=== PATIENT | male | born 1960 | race Caucasian/White ===

== ENCOUNTER 2017-10-04 22:23 | Inpatient (IN) | payer MEDICARE, MEDICAID ==
[~2017-10-04] VITALS: Ht 172.7 cm; Wt 84.8 kg
[2017-10-04 22:23] VITALS: BP 122/74
[~2017-10-04 22:23] MED LIST: Sodium Chloride 500ML 500 ML IV ONE
[2017-10-04 23:12] LABS: BASOPHILS % (AUTO) 1.2 % (0.0-2.0); EOSINOPHILS % (AUTO) 0.1 % (0.0-3.0); LYMPHOCYTES % (AUTO) 40.1 % (20.0-45.0); MEAN CORPUSCULAR HEMOGLOBIN 31.6 PG (27.0-31.0); MEAN CORPUSCULAR HGB CONC 33.4 G/DL (32.0-36.0); MEAN CORPUSCULAR VOLUME 95 FL (80-99); MEAN PLATELET VOLUME 5.9 FL (6.5-10.1); MONOCYTES % (AUTO) 9.8 % (1.0-10.0); NEUTROPHILS % (AUTO) 48.8 % (45.0-75.0); PLATELET COUNT 241 K/UL (150-450); RED BLOOD COUNT 4.91 M/UL (4.70-6.10); RED CELL DISTRIBUTION WIDTH 12.6 % (11.6-14.8); WHITE BLOOD COUNT 7.6 K/UL (4.8-10.8)
[2017-10-04 23:32] LABS: ANION GAP 5 mmol/L (5-15); CARBON DIOXIDE 29 MMOL/L (21-32); CHLORIDE 100 MMOL/L (98-107); GLOMERULAR FILTRATION RATE > 60 mL/min (>60); POTASSIUM 4.8 MMOL/L (3.5-5.1); SODIUM 134 MMOL/L (136-145)
[2017-10-04 23:45] LABS: ALANINE AMINOTRANSFERASE 23 U/L (12-78); ALBUMIN/GLOBULIN RATIO 0.9 (1.0-2.7); ASPARTATE AMINO TRANSFERASE 25 U/L (15-37); CKMB 2.9 NG/ML (0.0-3.6); LIPASE 96 U/L (73-393); TOTAL PROTEIN 7.6 G/DL (6.4-8.2)
[2017-10-04] MEDS ORDERED: Mylanta II UD 30ml ORAL PRN (23:45)
[2017-10-04] MEDS ORDERED: Morphine Sulfate 2mg/ml Inj IVP PRN (23:45)
[2017-10-04] MEDS ORDERED: Zolpidem 5mg tab ORAL PRN (23:45)
[2017-10-04] MEDS ORDERED: Miralax 17gm pkt ORAL PRN (23:45)
[2017-10-04 23:50] LABS: APPEARANCE,URINE CLEAR; KETONES,URINE NEGATIVE (NEGATIVE); LEUKOCYTE ESTERASE ,URINE NEGATIVE (NEGATIVE); NITRITE,URINE NEGATIVE (NEGATIVE); PH,URINE 6.5 (4.5-8.0); PROTEIN,URINE NEGATIVE (NEGATIVE); UROBILINOGEN,URINE NORMAL MG/DL (0.0-1.0)
[2017-10-04] MEDS ORDERED: OMEPRAZOLE20 M3 ORAL (23:55)
[2017-10-04] MEDS ORDERED: MIRTAZAPINE15 M3 ORAL (23:55)
[2017-10-04] MEDS ORDERED: SEROQUEL200 MG ORAL ×2 (23:55)
[2017-10-04] MEDS ORDERED: METOPROLOL TART50 MG ORAL (23:55)
[2017-10-04] MEDS ORDERED: DEPAKOTE250 MG PO (23:55)
[2017-10-04] MEDS ORDERED: THORAZINE25 MG PO (23:55)
[2017-10-04] MEDS ORDERED: FOLIC ACID1 MG ORAL (23:55)
[2017-10-04] MEDS ORDERED: COGENTIN1 MG ORAL (23:55)
[2017-10-04] MEDS ORDERED: RISPERDAL2 MG ORAL (23:55)
[2017-10-04] MEDS ORDERED: INVEGA SUS234 MG/1.5 IM (23:55)
[2017-10-04] MEDS ORDERED: KLONOPIN1 MG ORAL (23:55)
--- NOTE | 2017-10-05 00:20 | Emergency Room Report ---
History of Present Illness General Chief Complaint: Hypertension Source: Patient, Medical Record, EMS Present Illness HPI Patient resides at a nursing facility He was found to be acting bizarre Agitated Patient had taken his colostomy bag off and started smearing feces in the room Patient himself denies any headache denies any chest pain Is amnesic for the episode does not recall any events that were described There was no reports of vomiting or diarrhea unknown regarding fevers Allergies: Coded Allergies: No Known Allergies (Unverified , 10/04/17) Patient History Past Medical History: see triage record Pertinent Family History: none Reviewed Nursing Documentation: PMH: Agreed, PSxH: Agreed Nursing Documentation-PMH Hx Hypertension: Yes Review of Systems All Other Systems: negative except mentioned in HPI Physical Exam Vital Signs Date Time Temp Pulse Resp B/P (MAP) Pulse Ox O2 Delivery O2 Flow Rate FiO2 10/04/17 22:09 97.7 98 20 122/74 96 Room Air Sp02 EP Interpretation: reviewed, normal General Appearance: well appearing Head: normocephalic, atraumatic Eyes: bilateral eye PERRL, bilateral eye EOMI ENT: hearing grossly normal, normal pharynx, TMs + canals normal, uvula midline Neck: full range of motion, supple, no meningismus, no bony tend Respiratory: lungs clear, normal breath sounds, no rhonchi, no respiratory distress, no retraction, no accessory muscle use Cardiovascular #1: normal peripheral pulses, regular rate, rhythm, no edema, no gallop, no JVD, no murmur Gastrointestinal: normal bowel sounds, non tender, soft, no mass, no organomegaly, non-distended, no guarding, no hernia, no pulsatile mass, no rebound Genitourinary: no CVA tenderness Musculoskeletal: normal inspection Neurologic: mirror painter III-XII nml as tested, motor strength/tone normal, sensory intact, other - Patient appears somewhat confused, speech is clear otherwise follows simple commands Psychiatric: other - flat affect Skin: normal color, no rash, warm/dry, palpation normal Lymphatic: normal inspection, no adenopathy Medical Decision Making Diagnostic Impression: Primary Impression: Encephalopathy acute ER Course Multiple differentials considered Including but not limited to intracranial, metabolic infectious Patient's blood work are appropriate X-ray imaging is benign Patient has done well throughout his stay and will be admitted for further care, Labs Test 10/04/17 22:55 10/04/17 22:59 White Blood Count 7.6 K/UL (4.8-10.8) Red Blood Count 4.91 M/UL (4.70-6.10) Hemoglobin 15.5 G/DL (14.2-18.0) Hematocrit 46.4 % (42.0-52.0) Mean Corpuscular Volume 95 FL (80-99) Mean Corpuscular Hemoglobin 31.6 PG (27.0-31.0) Mean Corpuscular Hemoglobin Concent 33.4 G/DL (32.0-36.0) Red Cell Distribution Width 12.6 % (11.6-14.8) Platelet Count 241 K/UL (150-450) Mean Platelet Volume 5.9 FL (6.5-10.1) Neutrophils (%) (Auto) 48.8 % (45.0-75.0) Lymphocytes (%) (Auto) 40.1 % (20.0-45.0) Monocytes (%) (Auto) 9.8 % (1.0-10.0) Eosinophils (%) (Auto) 0.1 % (0.0-3.0) Basophils (%) (Auto) 1.2 % (0.0-2.0) Sodium Level 134 MMOL/L (136-145) Potassium Level 4.8 MMOL/L (3.5-5.1) Chloride Level 100 MMOL/L (98-107) Carbon Dioxide Level 29 MMOL/L (21-32) Anion Gap 5 mmol/L (5-15) Blood Urea Nitrogen 13 mg/dL (7-18) Creatinine 1.0 MG/DL (0.55-1.30) Estimat Glomerular Filtration Rate > 60 mL/min (>60) Glucose Level 102 MG/DL (74-106) Calcium Level 9.0 MG/DL (8.5-10.1) Total Bilirubin 0.2 MG/DL (0.2-1.0) Aspartate Amino Transf (AST/SGOT) 25 U/L (15-37) Alanine Aminotransferase (ALT/SGPT) 23 U/L (12-78) Alkaline Phosphatase 134 U/L (46-116) Total Creatine Kinase 181 U/L (26-308) Creatine Kinase MB 2.9 NG/ML (0.0-3.6) Creatine Kinase MB Relative Index 1.6 Troponin I 0.000 ng/mL (0.000-0.056) Total Protein 7.6 G/DL (6.4-8.2) Albumin 3.5 G/DL (3.4-5.0) Globulin 4.1 g/dL Albumin/Globulin Ratio 0.9 (1.0-2.7) Lipase 96 U/L (73-393) Urine Color Yellow Urine Appearance Clear Urine pH 6.5 (4.5-8.0) Urine Specific [place] 1.010 (1.005-1.035) Urine Protein Negative (NEGATIVE) Urine Glucose (UA) Negative (NEGATIVE) Urine Ketones Negative (NEGATIVE) Urine Occult Blood Negative (NEGATIVE) Urine Nitrite Negative (NEGATIVE) Urine Bilirubin Negative (NEGATIVE) Urine Urobilinogen Normal MG/DL (0.0-1.0) Urine Leukocyte Esterase Negative (NEGATIVE) Urine Opiates Screen Negative (NEGATIVE) Urine Barbiturates Screen Negative (NEGATIVE) Phencyclidine (PCP) Screen Negative (NEGATIVE) Urine Amphetamines Screen Negative (NEGATIVE) Urine Benzodiazepines Screen Negative (NEGATIVE) Urine Cocaine Screen Negative (NEGATIVE) Urine Marijuana (THC) Screen Negative (NEGATIVE) Rhythm Strip Diag. Results EP Interpretation: yes Rate: 77 Rhythm: NSR, no PVC's, no ectopy Chest X-Ray Diagnostic Results Chest X-Ray Diagnostic Results : Chest X-Ray Ordered: Yes # of Views/Limited/Complete: 1 View Indication: Chest Pain EP Interpretation: Yes Interpretation: no consolidation, no effusion, no pneumothorax Impression: No acute disease Electronically Signed by: Danii Reid DO Last Vital Signs Date Time Temp Pulse Resp B/P (MAP) Pulse Ox O2 Delivery O2 Flow Rate FiO2 10/04/17 22:23 98 20 Room Air 10/04/17 22:23 97.7 122/74 96 Status: improved Disposition: ADMITTED INPATIENT Condition: Serious Referrals: ANIBAL COLBY (PCP) DANII REID D.O. Oct 05, 2017 00:20
[2017-10-05 00:23] VITALS: BP 119/79
[2017-10-05 04:00] VITALS: BP 125/77
[2017-10-05] MEDS: LORazepam Inj 2mg/ml 1ml IV PRN ×2 (05:38→11:03)
[2017-10-05 07:51] VITALS: BP 137/71
[2017-10-05 09:51] LABS: BASOPHILS % (AUTO) 1.2 % (0.0-2.0); LYMPHOCYTES % (AUTO) 36.4 % (20.0-45.0); MEAN CORPUSCULAR HEMOGLOBIN 33.5 PG (27.0-31.0); MEAN CORPUSCULAR HGB CONC 35.7 G/DL (32.0-36.0); MEAN CORPUSCULAR VOLUME 94 FL (80-99); MEAN PLATELET VOLUME 5.9 FL (6.5-10.1); MONOCYTES % (AUTO) 4.7 % (1.0-10.0); NEUTROPHILS % (AUTO) 57.7 % (45.0-75.0); PLATELET COUNT 276 K/UL (150-450); RED BLOOD COUNT 4.84 M/UL (4.70-6.10); RED CELL DISTRIBUTION WIDTH 12.5 % (11.6-14.8); WHITE BLOOD COUNT 7.7 K/UL (4.8-10.8)
[2017-10-05 10:15] LABS: ALANINE AMINOTRANSFERASE 19 U/L (12-78); ALBUMIN/GLOBULIN RATIO 0.9 (1.0-2.7); ANION GAP 7 mmol/L (5-15); ASPARTATE AMINO TRANSFERASE 14 U/L (15-37); CALCIUM 8.6 MG/DL (8.5-10.1); CARBON DIOXIDE 26 MMOL/L (21-32); CHLORIDE 101 MMOL/L (98-107); CHOLESTEROL 146 MG/DL (< 200); CHOLESTEROL/HDL RATIO 3.4 (3.3-4.4); GLOMERULAR FILTRATION RATE > 60 mL/min (>60); POTASSIUM 4.4 MMOL/L (3.5-5.1); SODIUM 134 MMOL/L (136-145); THYROID STIMULATING HORMONE 1.767 uiU/mL (0.358-3.740); TOTAL PROTEIN 7.8 G/DL (6.4-8.2)
[2017-10-05 11:46] VITALS: BP 128/73
--- NOTE | 2017-10-05 13:22 | Neurology Progress Note ---
Objective Physical Exam Last Vital Signs Date Time Temp Pulse Resp B/P (MAP) Pulse Ox O2 Delivery O2 Flow Rate FiO2 10/05/17 11:46 98.2 90 18 128/73 97 Room Air Laboratory Tests Test 10/04/17 22:55 10/04/17 22:59 10/05/17 08:50 White Blood Count 7.6 K/UL (4.8-10.8) 7.7 K/UL (4.8-10.8) Red Blood Count 4.91 M/UL (4.70-6.10) 4.84 M/UL (4.70-6.10) Hemoglobin 15.5 G/DL (14.2-18.0) 16.2 G/DL (14.2-18.0) Hematocrit 46.4 % (42.0-52.0) 45.5 % (42.0-52.0) Mean Corpuscular Volume 95 FL (80-99) 94 FL (80-99) Mean Corpuscular Hemoglobin 31.6 PG (27.0-31.0) H 33.5 PG (27.0-31.0) H Mean Corpuscular Hemoglobin Concent 33.4 G/DL (32.0-36.0) 35.7 G/DL (32.0-36.0) Red Cell Distribution Width 12.6 % (11.6-14.8) 12.5 % (11.6-14.8) Platelet Count 241 K/UL (150-450) 276 K/UL (150-450) Mean Platelet Volume 5.9 FL (6.5-10.1) L 5.9 FL (6.5-10.1) L Neutrophils (%) (Auto) 48.8 % (45.0-75.0) 57.7 % (45.0-75.0) Lymphocytes (%) (Auto) 40.1 % (20.0-45.0) 36.4 % (20.0-45.0) Monocytes (%) (Auto) 9.8 % (1.0-10.0) 4.7 % (1.0-10.0) Eosinophils (%) (Auto) 0.1 % (0.0-3.0) 0.0 % (0.0-3.0) Basophils (%) (Auto) 1.2 % (0.0-2.0) 1.2 % (0.0-2.0) Sodium Level 134 MMOL/L (136-145) L 134 MMOL/L (136-145) L Potassium Level 4.8 MMOL/L (3.5-5.1) 4.4 MMOL/L (3.5-5.1) Chloride Level 100 MMOL/L (98-107) 101 MMOL/L (98-107) Carbon Dioxide Level 29 MMOL/L (21-32) 26 MMOL/L (21-32) Anion Gap 5 mmol/L (5-15) 7 mmol/L (5-15) Blood Urea Nitrogen 13 mg/dL (7-18) 11 mg/dL (7-18) Creatinine 1.0 MG/DL (0.55-1.30) 1.0 MG/DL (0.55-1.30) Estimat Glomerular Filtration Rate > 60 mL/min (>60) > 60 mL/min (>60) Glucose Level 102 MG/DL (74-106) 125 MG/DL (74-106) H Calcium Level 9.0 MG/DL (8.5-10.1) 8.6 MG/DL (8.5-10.1) Total Bilirubin 0.2 MG/DL (0.2-1.0) 0.1 MG/DL (0.2-1.0) L Aspartate Amino Transf (AST/SGOT) 25 U/L (15-37) 14 U/L (15-37) L Alanine Aminotransferase (ALT/SGPT) 23 U/L (12-78) 19 U/L (12-78) Alkaline Phosphatase 134 U/L (46-116) H 149 U/L (46-116) H Total Creatine Kinase 181 U/L (26-308) Creatine Kinase MB 2.9 NG/ML (0.0-3.6) Creatine Kinase MB Relative Index 1.6 Troponin I 0.000 ng/mL (0.000-0.056) Total Protein 7.6 G/DL (6.4-8.2) 7.8 G/DL (6.4-8.2) Albumin 3.5 G/DL (3.4-5.0) 3.6 G/DL (3.4-5.0) Globulin 4.1 g/dL 4.2 g/dL Albumin/Globulin Ratio 0.9 (1.0-2.7) L 0.9 (1.0-2.7) L Lipase 96 U/L (73-393) Urine Color Yellow Urine Appearance Clear Urine pH 6.5 (4.5-8.0) Urine Specific [place] 1.010 (1.005-1.035) Urine Protein Negative (NEGATIVE) Urine Glucose (UA) Negative (NEGATIVE) Urine Ketones Negative (NEGATIVE) Urine Occult Blood Negative (NEGATIVE) Urine Nitrite Negative (NEGATIVE) Urine Bilirubin Negative (NEGATIVE) Urine Urobilinogen Normal MG/DL (0.0-1.0) Urine Leukocyte Esterase Negative (NEGATIVE) Urine Opiates Screen Negative (NEGATIVE) Urine Barbiturates Screen Negative (NEGATIVE) Phencyclidine (PCP) Screen Negative (NEGATIVE) Urine Amphetamines Screen Negative (NEGATIVE) Urine Benzodiazepines Screen Negative (NEGATIVE) Urine Cocaine Screen Negative (NEGATIVE) Urine Marijuana (THC) Screen Negative (NEGATIVE) Triglycerides Level 249 MG/DL (30-150) H Cholesterol Level 146 MG/DL (< 200) LDL Cholesterol 83 mg/dL (<100) HDL Cholesterol 43 MG/DL (40-60) Cholesterol/HDL Ratio 3.4 (3.3-4.4) Thyroid Stimulating Hormone (TSH) 1.767 uiU/mL (0.358-3.740) Impression/Recommendations Recommendations #[id number] PETER COLBERT Oct 05, 2017 13:22
[2017-10-05] MEDS ORDERED: chlorproMAZINE 25mg tab ORAL ONE (15:00)
--- NOTE | 2017-10-05 15:55 | Consultation ---
History of Present Illness General Date patient seen: Oct 05, 2017 Chief Complaint: Hypertension Present Illness HPI 56 year old male with hx of colostomy, schizophrenia residing at a nursing facility He was found to be acting bizarre and Agitated. He had taken his colostomy bag off and started smearing feces in the room Pt is admitted for acute encephalopathy. Allergies: Coded Allergies: No Known Allergies (Unverified , 10/04/17) Medication History Scheduled Benztropine Mesylate (Cogentin 1mg*), 1 MG ORAL EVERY 12 HOURS, (Reported) Chlorpromazine (Chlorpromazine HCl), 50 MG PO TID, (Reported) Clonazepam* (Klonopin*), 1 MG ORAL BID, (Reported) Divalproex Sodium* (Depakote*), 1,000 MG PO QHS, (Reported) Folic Acid* (Folic Acid*), 1 MG ORAL DAILY, (Reported) Metoprolol Tartrate* (Metoprolol Tartrate*), 50 MG ORAL EVERY 12 HOURS, ( Reported) Mirtazapine* (Mirtazapine*), 15 MG ORAL QHS, (Reported) Omeprazole (Omeprazole), 20 MG ORAL ACBREAKFAST, (Reported) Paliperidone Palmitate (Invega Sustenna), 234 MG IM monthly, (Reported) Quetiapine Fumarate* (Seroquel*), 200 MG ORAL TWICE A DAY, (Reported) Quetiapine Fumarate* (Seroquel*), 300 MG ORAL QHS, (Reported) Risperidone* (Risperdal*), 4 MG ORAL BID, (Reported) Patient History Healthcare decision maker Resuscitation status Full Code Advanced Directive on File Past Medical/Surgical History Past Medical/Surgical History: (1) Colostomy in place (2) HTN (hypertension) Review of Systems All Other Systems: negative except mentioned in HPI Physical Exam General Appearance: WD/WN Lines, tubes and drains: peripheral, central line HEENT: normocephalic, atraumatic Neck: non-tender, normal alignment Respiratory/Chest: chest wall non-tender, lungs clear Breasts: no masses Cardiovascular/Chest: normal peripheral pulses, normal rate Abdomen: normal bowel sounds, non tender Genitourinary/Rectal: normal genital exam Extremities: normal range of motion Last 24 Hour Vital Signs Date Time Temp Pulse Resp B/P (MAP) Pulse Ox O2 Delivery O2 Flow Rate FiO2 10/05/17 11:46 98.2 90 18 128/73 97 Room Air 10/05/17 07:51 97.2 99 19 137/71 96 Room Air 10/05/17 04:00 98.1 77 20 125/77 94 10/05/17 04:00 Room Air 10/05/17 00:40 97.7 95 18 135/78 96 Room Air 10/05/17 00:23 98.0 95 17 119/79 96 Room Air 10/04/17 22:23 98 20 Room Air 10/04/17 22:23 97.7 98 20 122/74 96 Room Air 10/04/17 22:09 97.7 98 20 122/74 96 Room Air Intake and Output 10/05/17 10/06/17 19:00 07:00 Intake Total 480 ml Balance 480 ml Intake Oral 480 ml Laboratory Tests Test 10/04/17 22:55 10/04/17 22:59 10/05/17 08:50 White Blood Count 7.6 K/UL (4.8-10.8) 7.7 K/UL (4.8-10.8) Red Blood Count 4.91 M/UL (4.70-6.10) 4.84 M/UL (4.70-6.10) Hemoglobin 15.5 G/DL (14.2-18.0) 16.2 G/DL (14.2-18.0) Hematocrit 46.4 % (42.0-52.0) 45.5 % (42.0-52.0) Mean Corpuscular Volume 95 FL (80-99) 94 FL (80-99) Mean Corpuscular Hemoglobin 31.6 PG (27.0-31.0) H 33.5 PG (27.0-31.0) H Mean Corpuscular Hemoglobin Concent 33.4 G/DL (32.0-36.0) 35.7 G/DL (32.0-36.0) Red Cell Distribution Width 12.6 % (11.6-14.8) 12.5 % (11.6-14.8) Platelet Count 241 K/UL (150-450) 276 K/UL (150-450) Mean Platelet Volume 5.9 FL (6.5-10.1) L 5.9 FL (6.5-10.1) L Neutrophils (%) (Auto) 48.8 % (45.0-75.0) 57.7 % (45.0-75.0) Lymphocytes (%) (Auto) 40.1 % (20.0-45.0) 36.4 % (20.0-45.0) Monocytes (%) (Auto) 9.8 % (1.0-10.0) 4.7 % (1.0-10.0) Eosinophils (%) (Auto) 0.1 % (0.0-3.0) 0.0 % (0.0-3.0) Basophils (%) (Auto) 1.2 % (0.0-2.0) 1.2 % (0.0-2.0) Sodium Level 134 MMOL/L (136-145) L 134 MMOL/L (136-145) L Potassium Level 4.8 MMOL/L (3.5-5.1) 4.4 MMOL/L (3.5-5.1) Chloride Level 100 MMOL/L (98-107) 101 MMOL/L (98-107) Carbon Dioxide Level 29 MMOL/L (21-32) 26 MMOL/L (21-32) Anion Gap 5 mmol/L (5-15) 7 mmol/L (5-15) Blood Urea Nitrogen 13 mg/dL (7-18) 11 mg/dL (7-18) Creatinine 1.0 MG/DL (0.55-1.30) 1.0 MG/DL (0.55-1.30) Estimat Glomerular Filtration Rate > 60 mL/min (>60) > 60 mL/min (>60) Glucose Level 102 MG/DL (74-106) 125 MG/DL (74-106) H Calcium Level 9.0 MG/DL (8.5-10.1) 8.6 MG/DL (8.5-10.1) Total Bilirubin 0.2 MG/DL (0.2-1.0) 0.1 MG/DL (0.2-1.0) L Aspartate Amino Transf (AST/SGOT) 25 U/L (15-37) 14 U/L (15-37) L Alanine Aminotransferase (ALT/SGPT) 23 U/L (12-78) 19 U/L (12-78) Alkaline Phosphatase 134 U/L (46-116) H 149 U/L (46-116) H Total Creatine Kinase 181 U/L (26-308) Creatine Kinase MB 2.9 NG/ML (0.0-3.6) Creatine Kinase MB Relative Index 1.6 Troponin I 0.000 ng/mL (0.000-0.056) Total Protein 7.6 G/DL (6.4-8.2) 7.8 G/DL (6.4-8.2) Albumin 3.5 G/DL (3.4-5.0) 3.6 G/DL (3.4-5.0) Globulin 4.1 g/dL 4.2 g/dL Albumin/Globulin Ratio 0.9 (1.0-2.7) L 0.9 (1.0-2.7) L Lipase 96 U/L (73-393) Urine Color Yellow Urine Appearance Clear Urine pH 6.5 (4.5-8.0) Urine Specific [place] 1.010 (1.005-1.035) Urine Protein Negative (NEGATIVE) Urine Glucose (UA) Negative (NEGATIVE) Urine Ketones Negative (NEGATIVE) Urine Occult Blood Negative (NEGATIVE) Urine Nitrite Negative (NEGATIVE) Urine Bilirubin Negative (NEGATIVE) Urine Urobilinogen Normal MG/DL (0.0-1.0) Urine Leukocyte Esterase Negative (NEGATIVE) Urine Opiates Screen Negative (NEGATIVE) Urine Barbiturates Screen Negative (NEGATIVE) Phencyclidine (PCP) Screen Negative (NEGATIVE) Urine Amphetamines Screen Negative (NEGATIVE) Urine Benzodiazepines Screen Negative (NEGATIVE) Urine Cocaine Screen Negative (NEGATIVE) Urine Marijuana (THC) Screen Negative (NEGATIVE) Triglycerides Level 249 MG/DL (30-150) H Cholesterol Level 146 MG/DL (< 200) LDL Cholesterol 83 mg/dL (<100) HDL Cholesterol 43 MG/DL (40-60) Cholesterol/HDL Ratio 3.4 (3.3-4.4) Thyroid Stimulating Hormone (TSH) 1.767 uiU/mL (0.358-3.740) Valproic Acid (Depakene) Level 48 MCG/ML (50-100) L Height (Feet): 5 Height (Inches): 8.00 Weight (Pounds): 187 Medications Current Medications Medications (Trade) Dose Ordered Sig/Lyssa Route PRN Reason Start Time Stop Time Status Last Admin Dose Admin Acetaminophen (Tylenol) 650 mg Q4H PRN ORAL fever 10/04/17 23:45 11/03/17 23:44 Al Hydroxide/Mg Hydroxide (Mylanta II) 30 ml Q6H PRN ORAL dyspepsia 10/04/17 23:45 11/03/17 23:44 Chlorpromazine (Thorazine) 25 mg TID ORAL 10/05/17 18:00 11/04/17 17:59 Dextrose (Dextrose 50%) STAT PRN IV Hypoglycemia 10/04/17 23:45 11/03/17 23:44 Diphenhydramine HCl (Benadryl) 50 mg TID ORAL 10/05/17 18:00 11/04/17 17:59 Divalproex Sodium (Depakote ER) 1,000 mg QHS ORAL 10/05/17 21:00 11/04/17 20:59 Lorazepam (Ativan 2mg/ml 1ml) 1 mg Q4H PRN IV For Anxiety 10/05/17 15:45 10/12/17 15:44 Morphine Sulfate (Morphine Sulfate) 1 mg Q4H PRN IVP For Pain 10/04/17 23:45 10/11/17 23:44 Ondansetron HCl (Zofran) 4 mg Q6H PRN IVP Nausea & Vomiting 10/04/17 23:45 11/03/17 23:44 Polyethylene Glycol (Miralax) 17 gm HSPRN PRN ORAL Constipation 10/04/17 23:45 11/03/17 23:44 Quetiapine Fumarate (SEROquel) 200 mg BID ORAL 10/05/17 18:00 11/04/17 17:59 Zolpidem Tartrate (Ambien) 5 mg HSPRN PRN ORAL Insomnia 10/04/17 23:45 10/11/17 23:44 Assessment/Plan Problem List: (1) Encephalopathy acute ICD Codes: G93.40 - Encephalopathy, unspecified SNOMED: 5184698 (2) Hypertension ICD Codes: I10 - Essential (primary) hypertension SNOMED: 73866753 (3) Colostomy in place ICD Codes: Z93.3 - Colostomy status SNOMED: 598758552, 259307397 Assessment/Plan Neuro and psych evaluation. check electrolytes. colostomy care ETHEL SOTO Oct 05, 2017 15:55
[2017-10-05 15:59] VITALS: BP 136/75
--- NOTE | 2017-10-05 17:02 | History and Physical Report ---
DATE OF ADMISSION: 10/04/2017 TIME SEEN: On 10/05/2017, approximate time is 1 p.m. ATTENDING PHYSICIAN: Marty Hawthorne D.O. CONSULTANTS: 1. Miguel Angel Sahni M.D. 2. Akin Zamora M.D. 3. Alex Batista M.D. CHIEF COMPLAINT: Increased confusion and agitation. BRIEF HISTORY: The patient is a 56-year-old male from [facility] who presented with the above-mentioned diagnoses, diagnosed with above, admitted to [facility] floor for further treatment. He is currently calm and slightly confused in bed. No complaint, otherwise. PAST MEDICAL HISTORY: Encephalopathy and chronic pain. PAST SURGICAL HISTORY: Exploratory laparotomy and colostomy. MEDICATIONS: Tylenol, morphine, MiraLAX, Zofran, Ambien, Ativan and Mylanta. ALLERGIES: Denies. SOCIAL HISTORY: Positive smoke. Positive alcohol. No intravenous drug abuse. FAMILY HISTORY: Noncontributory. REVIEW OF SYSTEMS: No chest pain. No shortness of breath. No nausea, vomiting, or diarrhea. PHYSICAL EXAMINATION: GENERAL: Slightly agitated, in bed, oriented x1, in no acute distress. VITAL SIGNS: Temperature is 98, pulse 90, respirations 18, and blood pressure 128/73. CARDIOVASCULAR: No murmur. LUNGS: Poor exchange. ABDOMEN: Bowel sounds positive. Midline wound is clean and dry. Right side colostomy noted. EXTREMITIES: Showed no cyanosis, clubbing, or edema. NEUROLOGIC: The patient moves all extremities, slightly weak. LABORATORY DATA: Labs at this time show CBC is normal. BMP shows sodium 134, glucose 129, otherwise normal. Urine tox is negative. Urinalysis is negative. ASSESSMENT: 1. Encephalopathy. 2. Agitation. 3. Chronic pain. 4. Hypertension. PLAN: 1. Continue premedications. 2. Psych treatment. 3. Blood pressure control. 4. Dietary followup. 5. Transfer to Psych. 6. We will continue to follow this patient medically. 7. CBC and BMP in the morning. 8. OT, PT and dietary evaluation. Marty Hawthorne D.O. DR: WENDY JOB#: [id number] CC:
[2017-10-05] MEDS: QUEtiapine 200mg tab ORAL SCH (18:15)
[2017-10-05] MEDS: chlorproMAZINE 25mg tab ORAL SCH (18:46)
[2017-10-05 21:00] VITALS: BP 140/71
[2017-10-05] MEDS: Depakote ER 500mg tab ORAL SCH (21:00)
--- NOTE | 2017-10-05 21:01 | Consultation ---
DATE OF CONSULTATION: 10/05/2017 NEUROLOGICAL CONSULTATION CONSULTING PHYSICIAN: Alex Batista M.D. REQUESTING PHYSICIAN: Marty Hawthorne D.O. HISTORY OF PRESENT ILLNESS: This is a 56-year-old man seen in neurological consultation to evaluate the episodes of "acting bizarre and being agitated." Apparently, the patient took his colostomy bag off and started smearing feces in the room. When asked later, the patient was unable to recall of any such events. With this, he was brought to emergency room. His vital signs were stable. Blood pressure 142/74 and temperature 97.7. Initial workup included laboratory studies revealing normal CBC study, chemistry panel unremarkable except sodium of 134, triglycerides 249, normal TSH and CPK. Urinalysis was normal and toxicology panel was negative. Since admission until present, there was no evidence of paroxysmal activity. PAST MEDICAL HISTORY: This was obtained from medical records. The patient has no recollection of any medical issues. He was unable to explain the reason for his colostomy use. Apparently, the patient has history of hypertension, chronic psychiatric disorder, history of laparotomy with a colostomy bag in place. The patient as part of some injury to his abdomen. MEDICATIONS: His treatment prior to admission included Cogentin, chlorpromazine 25 mg t.i.d., Klonopin 1 mg b.i.d., Depakote 1000 mg at bedtime, folate, metoprolol 50 mg b.i.d., Remeron 15 mg at bedtime, omeprazole, Invega , Seroquel 200 b.i.d. and 300 at bedtime, and Risperdal 4 mg b.i.d. ALLERGIES: None reported. SOCIAL HISTORY: Resident of nursing facility. FAMILY HISTORY: Unavailable. REVIEW OF SYMPTOMS: Unable to obtain due to the patient's status. He informed me that he was still perfectly well and he would like to go to "my place." PHYSICAL EXAMINATION: GENERAL: A well-developed, well-nourished, healthy-appearing man, not in acute distress. VITAL SIGNS: Stable. Blood pressure 128/73, temperature 98.2. HEENT: Head normocephalic. There is no evidence of trauma. No otorrhea. No rhinorrhea. NECK: Supple. No meningeal signs. MUSCULOSKELETAL: Examination unremarkable. There are no deformities. ABDOMEN: There is a large laparotomy scarring with a colostomy bag in place. EXTREMITIES: Peripheral pulses 1+, symmetric. SKIN: Unremarkable. No rash. No evidence of trauma. MENTAL STATUS: The patient is alert. He indicates his age is 67. He was unable to give the name, place, time, year. He was unable to provide with medical history. He appears to be significantly agitated with angry look, but was able to follow simple commands, responding to joke. He was asking if he can go back to his place. CRANIAL NERVE II: Pupils both responding to light and accommodation. Extraocular movements intact. No nystagmus. CRANIAL NERVES V: Normal corneal responses. CRANIAL NERVES VII: No facial asymmetry. CRANIAL NERVES VIII: Normal hearing. CRANIAL NERVES IX THROUGH XII: Tongue is in midline. Symmetric palate elevation. MOTOR: Normal muscle tone. Strength 5/5 in all extremities. No involuntary movement. Deep tendon reflexes 1+, bilaterally symmetric. Plantar responses flexor. SENSORY: Normal to pin stimulation. GAIT: Stable including tandem gait. IMPRESSION: 1. Mental retardation, presenting with acute psychotic behavior. 2. Rule out seizure disorder with amnestic episode. 3. Hypertension. 4. Chronic psychiatric disorder. RECOMMENDATION: Check baseline CT of the brain and get EEG to rule out any ongoing seizure activities. Obtain Depakote level and adjust the dose appropriately, have psychiatry assessment to adjust antipsychotic treatment. Thank you for allowing me to see this interesting patient in neurological consultation Alex Batista M.D. DR: Paul JOB#: [id number] CC:
[2017-10-06 04:00] VITALS: BP 132/78
[2017-10-06 06:42] LABS: ANION GAP 6 mmol/L (5-15); CALCIUM 8.9 MG/DL (8.5-10.1); CARBON DIOXIDE 29 MMOL/L (21-32); CHLORIDE 99 MMOL/L (98-107); GLOMERULAR FILTRATION RATE > 60 mL/min (>60); POTASSIUM 4.7 MMOL/L (3.5-5.1); SODIUM 134 MMOL/L (136-145)
[2017-10-06 07:04] LABS: BASOPHILS % (AUTO) 1.4 % (0.0-2.0); LYMPHOCYTES % (AUTO) 34.6 % (20.0-45.0); MEAN CORPUSCULAR HEMOGLOBIN 30.6 PG (27.0-31.0); MEAN CORPUSCULAR HGB CONC 32.3 G/DL (32.0-36.0); MEAN CORPUSCULAR VOLUME 95 FL (80-99); MEAN PLATELET VOLUME 5.4 FL (6.5-10.1); MONOCYTES % (AUTO) 7.8 % (1.0-10.0); NEUTROPHILS % (AUTO) 56.2 % (45.0-75.0); PLATELET COUNT 273 K/UL (150-450); RED BLOOD COUNT 4.97 M/UL (4.70-6.10); RED CELL DISTRIBUTION WIDTH 12.7 % (11.6-14.8); WHITE BLOOD COUNT 8.5 K/UL (4.8-10.8)
[2017-10-06] MEDS: LORazepam Inj 2mg/ml 1ml IV PRN ×3 (07:50→23:25)
--- NOTE | 2017-10-06 08:31 | Consultation ---
DATE OF CONSULTATION: 10/05/2017 NOTE: POOR AUDIO QUALITY HISTORY OF PRESENT ILLNESS: This is a 56-year-old male patient who was admitted to [facility] secondary to hypertension, but he had lot of mood lability, agitation, confusion as well as lability secondary to progression of medical illness. He is very irritable and agitated. He has overlying diagnosis of schizoaffective, bipolar type, that is why his primary attending has requested daily psychiatric followup. This patient is still confused, irritable, agitated, verbally assaultive towards staff, disorganized, mood labile. ALLERGIES: He has no known drug allergies. SUBSTANCE ABUSE HISTORY: Refused to answer questions. PSYCHIATRIC HISTORY: Schizoaffective, bipolar type. He has had multiple psychiatric admissions. SOCIAL HISTORY: This patient is financially supported by [employer] and Medicare. MEDICAL HISTORY: He has history of hypertension, neuropathy, . MENTAL STATUS EXAMINATION: This is a 56-year-old male with psychomotor retardation. Mood is depressed. Affect guarded and restricted. Thought process is disorganized and illogical. Endorses intermittent suicidal ideations with no plan. Insight and judgment is poor. DIAGNOSIS: Schizoaffective, bipolar type. PLAN: My plan is to treat this patient with Depakote 1000 mg at bedtime to stabilize his mood and Thorazine 25 mg three times a day with Benadryl 50 mg three times a day, and Seroquel 200 mg twice a day. Provide behavioral management and supportive therapy. Encouraged him to interact appropriately with staff and other patients. We will transfer him once he is medically cleared. Chart is reviewed and discussed with staff. The patient is seen and assessed at bedside. I would like to thank Dr. Mraty Hawthorne for this interesting consultation. Akin Zamora M.D. DR: Lamberto JOB#: [id number] CC:
[2017-10-06] MEDS: QUEtiapine 200mg tab ORAL SCH ×2 (09:46→17:46)
[2017-10-06] MEDS: chlorproMAZINE 25mg tab ORAL SCH ×3 (09:46→17:47)
[2017-10-06 12:03] VITALS: BP 122/63
--- NOTE | 2017-10-06 14:03 | General Progress Note ---
Assessment/Plan Problem List: (1) Hypertension ICD Codes: I10 - Essential (primary) hypertension SNOMED: 34741844 (2) Encephalopathy acute ICD Codes: G93.40 - Encephalopathy, unspecified SNOMED: 6308102 (3) Colostomy in place ICD Codes: Z93.3 - Colostomy status SNOMED: 006070933, 179793558 Status: stable, progressing, tolerating diet Assessment/Plan ot pt diet psyc tx transfer to [facility] bmp am Subjective Constitutional: Reports: weakness Allergies: Coded Allergies: No Known Allergies (Unverified , 10/04/17) All Systems: reviewed and negative except above Subjective sl confused in bed Objective Last 24 Hour Vital Signs Date Time Temp Pulse Resp B/P (MAP) Pulse Ox O2 Delivery O2 Flow Rate FiO2 10/06/17 12:03 97.7 105 22 122/63 100 Room Air 10/06/17 04:00 98.1 92 18 132/78 91 10/06/17 04:00 Room Air 10/06/17 00:09 Room Air 10/05/17 21:00 Room Air 10/05/17 21:00 99.3 89 21 140/71 95 10/05/17 15:59 98.0 84 22 136/75 97 Room Air Laboratory Tests 10/06/17 06:10: White Blood Count 8.5, Red Blood Count 4.97, Hemoglobin 15.2, Hematocrit 47.1, Mean Corpuscular Volume 95, Mean Corpuscular Hemoglobin 30.6, Mean Corpuscular Hemoglobin Concent 32.3, Red Cell Distribution Width 12.7, Platelet Count 273, Mean Platelet Volume 5.4L, Neutrophils (%) (Auto) 56.2, Lymphocytes (%) (Auto) 34.6, Monocytes (%) (Auto) 7.8, Eosinophils (%) (Auto) 0.0, Basophils (%) (Auto ) 1.4, Sodium Level 134L, Potassium Level 4.7, Chloride Level 99, Carbon Dioxide Level 29, Anion Gap 6, Blood Urea Nitrogen 10, Creatinine 1.0, Estimat Glomerular Filtration Rate > 60, Glucose Level 98, Calcium Level 8.9 Height (Feet): 5 Height (Inches): 8.00 Weight (Pounds): 187 General Appearance: confused EENT: normal ENT inspection Neck: normal alignment Cardiovascular: normal peripheral pulses, normal rate, regular rhythm Respiratory/Chest: chest wall non-tender, lungs clear, normal breath sounds Abdomen: normal bowel sounds, non tender, soft Extremities: normal inspection Edema: no edema noted Arm (L), no edema noted Arm (R), no edema noted Leg (L), no edema noted Leg (R), no edema noted Pedal (L), no edema noted Pedal (R), no edema noted Generalized Neurologic: motor weakness Skin: normal pigmentation, warm/dry ANIBAL COLBY Oct 06, 2017 14:03
--- NOTE | 2017-10-06 15:45 | Pulmonology Progress Note ---
Assessment/Plan Problems: (1) Encephalopathy acute (2) Hypertension (3) Colostomy in place Assessment/Plan all noted symptomatic treatment all notes reviewed check electrolytes dc planning soon Subjective ROS Limited/Unobtainable: No Constitutional: Reports: no symptoms HEENT: Repors: no symptoms Respiratory: Reports: no symptoms Allergies: Coded Allergies: No Known Allergies (Unverified , 10/04/17) Objective Last 24 Hour Vital Signs Date Time Temp Pulse Resp B/P (MAP) Pulse Ox O2 Delivery O2 Flow Rate FiO2 10/06/17 12:03 97.7 105 22 122/63 100 Room Air 10/06/17 04:00 98.1 92 18 132/78 91 10/06/17 04:00 Room Air 10/06/17 00:09 Room Air 10/05/17 21:00 Room Air 10/05/17 21:00 99.3 89 21 140/71 95 10/05/17 15:59 98.0 84 22 136/75 97 Room Air Intake and Output 10/06/17 10/07/17 19:00 07:00 Intake Total 480 ml Balance 480 ml Intake Oral 480 ml General Appearance: WD/WN HEENT: normocephalic, atraumatic Respiratory/Chest: chest wall non-tender, lungs clear Abdomen: non distended Genitourinary: normal external genitalia Extremities: no clubbing Skin: no rash, no lesions Laboratory Tests 10/06/17 06:10: White Blood Count 8.5, Red Blood Count 4.97, Hemoglobin 15.2, Hematocrit 47.1, Mean Corpuscular Volume 95, Mean Corpuscular Hemoglobin 30.6, Mean Corpuscular Hemoglobin Concent 32.3, Red Cell Distribution Width 12.7, Platelet Count 273, Mean Platelet Volume 5.4L, Neutrophils (%) (Auto) 56.2, Lymphocytes (%) (Auto) 34.6, Monocytes (%) (Auto) 7.8, Eosinophils (%) (Auto) 0.0, Basophils (%) (Auto ) 1.4, Sodium Level 134L, Potassium Level 4.7, Chloride Level 99, Carbon Dioxide Level 29, Anion Gap 6, Blood Urea Nitrogen 10, Creatinine 1.0, Estimat Glomerular Filtration Rate > 60, Glucose Level 98, Calcium Level 8.9 Current Medications Medications (Trade) Dose Ordered Sig/Lyssa Route PRN Reason Start Time Stop Time Status Last Admin Dose Admin Acetaminophen (Tylenol) 650 mg Q4H PRN ORAL fever 10/04/17 23:45 11/03/17 23:44 Al Hydroxide/Mg Hydroxide (Mylanta II) 30 ml Q6H PRN ORAL dyspepsia 10/04/17 23:45 11/03/17 23:44 Chlorpromazine (Thorazine) 25 mg TID ORAL 10/05/17 18:00 11/04/17 17:59 10/06/17 13:00 Dextrose (Dextrose 50%) STAT PRN IV Hypoglycemia 10/04/17 23:45 11/03/17 23:44 Diphenhydramine HCl (Benadryl) 50 mg TID ORAL 10/05/17 18:00 11/04/17 17:59 10/06/17 13:00 Divalproex Sodium (Depakote ER) 1,000 mg QHS ORAL 10/05/17 21:00 11/04/17 20:59 10/05/17 21:00 Lorazepam (Ativan 2mg/ml 1ml) 1 mg Q4H PRN IV For Anxiety 10/05/17 15:45 10/12/17 15:44 10/06/17 13:22 Morphine Sulfate (Morphine Sulfate) 1 mg Q4H PRN IVP For Pain 10/04/17 23:45 10/11/17 23:44 Ondansetron HCl (Zofran) 4 mg Q6H PRN IVP Nausea & Vomiting 10/04/17 23:45 11/03/17 23:44 Polyethylene Glycol (Miralax) 17 gm HSPRN PRN ORAL Constipation 10/04/17 23:45 11/03/17 23:44 Quetiapine Fumarate (SEROquel) 200 mg BID ORAL 10/05/17 18:00 11/04/17 17:59 10/06/17 09:46 Zolpidem Tartrate (Ambien) 5 mg HSPRN PRN ORAL Insomnia 10/04/17 23:45 10/11/17 23:44 ETHEL SOTO Oct 06, 2017 15:44
[2017-10-06 16:00] VITALS: BP 149/81
--- NOTE | 2017-10-06 19:00 | Progress Note ---
DATE: 10/06/2017 SUBJECTIVE: This is a 56-year-old male patient. He has hypertension. He was admitted to the hospital due to hypertension, but he also has lot of agitation and mood lability, confusion, and disorganized thought process. DIAGNOSIS: Schizoaffective bipolar type. PLAN: Continue treatment with Thorazine and Seroquel to stabilize his mood. Continued to be followed by Psychiatry throughout his hospital course to manage his behavior, daily consultation requested by his attending physician where he continued to be followed by Psychiatry throughout his hospital course. Chart was reviewed and discussed with staff. The patient is seen and assessed in his room. Akin Zamora M.D. DR: BENJAMIN JOB#: [id number] CC:
[2017-10-06] MEDS: Depakote ER 500mg tab ORAL SCH (20:56)
[2017-10-06 21:00] VITALS: BP 142/80
[2017-10-07] VITALS: BP 136/77
[2017-10-07 06:54] LABS: BASOPHILS % (AUTO) 1.1 % (0.0-2.0); LYMPHOCYTES % (AUTO) 38.2 % (20.0-45.0); MEAN CORPUSCULAR HEMOGLOBIN 31.5 PG (27.0-31.0); MEAN CORPUSCULAR HGB CONC 33.1 G/DL (32.0-36.0); MEAN CORPUSCULAR VOLUME 95 FL (80-99); MEAN PLATELET VOLUME 5.9 FL (6.5-10.1); MONOCYTES % (AUTO) 8.5 % (1.0-10.0); NEUTROPHILS % (AUTO) 52.1 % (45.0-75.0); PLATELET COUNT 272 K/UL (150-450); RED BLOOD COUNT 5.13 M/UL (4.70-6.10); RED CELL DISTRIBUTION WIDTH 12.6 % (11.6-14.8); WHITE BLOOD COUNT 8.8 K/UL (4.8-10.8)
[2017-10-07 07:05] LABS: ANION GAP 10 mmol/L (5-15); CALCIUM 9.2 MG/DL (8.5-10.1); CARBON DIOXIDE 26 MMOL/L (21-32); CHLORIDE 100 MMOL/L (98-107); CREATININE 1.1 MG/DL (0.55-1.30); GLOMERULAR FILTRATION RATE > 60 mL/min (>60); POTASSIUM 4.7 MMOL/L (3.5-5.1); SODIUM 136 MMOL/L (136-145)
[2017-10-07 08:00] VITALS: BP 152/80
[2017-10-07] MEDS: chlorproMAZINE 25mg tab ORAL SCH ×3 (08:48→17:54)
[2017-10-07] MEDS: QUEtiapine 200mg tab ORAL SCH ×2 (08:48→17:54)
[2017-10-07 12:00] VITALS: BP 133/76
[2017-10-07] MEDS: LORazepam Inj 2mg/ml 1ml IV PRN ×2 (13:33→13:35)
--- NOTE | 2017-10-07 14:51 | General Progress Note ---
Assessment/Plan Problem List: (1) Hypertension ICD Codes: I10 - Essential (primary) hypertension SNOMED: 93197332 (2) Encephalopathy acute ICD Codes: G93.40 - Encephalopathy, unspecified SNOMED: 4736519 (3) Colostomy in place ICD Codes: Z93.3 - Colostomy status SNOMED: 823090454, 087928838 Status: stable, progressing, tolerating diet Assessment/Plan ot pt diet psyc tx dc if clear by psyc Subjective Constitutional: Reports: weakness Allergies: Coded Allergies: No Known Allergies (Unverified , 10/04/17) All Systems: reviewed and negative except above Subjective sl confused in bed Objective Last 24 Hour Vital Signs Date Time Temp Pulse Resp B/P (MAP) Pulse Ox O2 Delivery O2 Flow Rate FiO2 10/07/17 12:00 97.5 100 20 133/76 98 10/07/17 08:00 97.7 100 20 152/80 97 10/07/17 00:00 97.3 86 21 136/77 93 10/06/17 21:00 94 Room Air 10/06/17 21:00 97.7 91 21 142/80 94 10/06/17 16:00 98.2 81 149/81 97 Room Air Intake and Output 10/07/17 10/08/17 19:00 07:00 # Bowel Movements 1 Laboratory Tests 10/07/17 05:15: White Blood Count 8.8, Red Blood Count 5.13, Hemoglobin 16.2, Hematocrit 48.8, Mean Corpuscular Volume 95, Mean Corpuscular Hemoglobin 31.5H, Mean Corpuscular Hemoglobin Concent 33.1, Red Cell Distribution Width 12.6, Platelet Count 272, Mean Platelet Volume 5.9L, Neutrophils (%) (Auto) 52.1, Lymphocytes (%) (Auto) 38.2, Monocytes (%) (Auto) 8.5, Eosinophils (%) (Auto) 0.0, Basophils (%) (Auto ) 1.1, Sodium Level 136, Potassium Level 4.7, Chloride Level 100, Carbon Dioxide Level 26, Anion Gap 10, Blood Urea Nitrogen 14, Creatinine 1.1, Estimat Glomerular Filtration Rate > 60, Glucose Level 113H, Calcium Level 9.2 Height (Feet): 5 Height (Inches): 8.00 Weight (Pounds): 187 General Appearance: lethargic, confused EENT: normal ENT inspection Neck: normal alignment Cardiovascular: normal peripheral pulses, normal rate, regular rhythm Respiratory/Chest: chest wall non-tender, lungs clear, normal breath sounds Abdomen: normal bowel sounds, non tender, soft Extremities: normal inspection Edema: no edema noted Arm (L), no edema noted Arm (R), no edema noted Leg (L), no edema noted Leg (R), no edema noted Pedal (L), no edema noted Pedal (R), no edema noted Generalized Neurologic: responsive, motor weakness Skin: normal pigmentation, warm/dry ANIBAL COLBY Oct 07, 2017 14:50
--- NOTE | 2017-10-07 15:21 | Pulmonology Progress Note ---
Assessment/Plan Problems: (1) Encephalopathy acute (2) Hypertension (3) Colostomy in place Assessment/Plan improving asking for coffee all noted symptomatic treatment all notes reviewed check electrolytes dc planning soon Subjective ROS Limited/Unobtainable: No Constitutional: Reports: no symptoms HEENT: Repors: no symptoms Respiratory: Reports: no symptoms Allergies: Coded Allergies: No Known Allergies (Unverified , 10/04/17) Objective Last 24 Hour Vital Signs Date Time Temp Pulse Resp B/P (MAP) Pulse Ox O2 Delivery O2 Flow Rate FiO2 10/07/17 12:00 97.5 100 20 133/76 98 10/07/17 08:00 97.7 100 20 152/80 97 10/07/17 00:00 97.3 86 21 136/77 93 10/06/17 21:00 94 Room Air 10/06/17 21:00 97.7 91 21 142/80 94 10/06/17 16:00 98.2 81 149/81 97 Room Air Intake and Output 10/07/17 10/08/17 19:00 07:00 # Bowel Movements 1 General Appearance: WD/WN HEENT: normocephalic, atraumatic Respiratory/Chest: chest wall non-tender, lungs clear Cardiovascular: normal peripheral pulses, normal rate Abdomen: normal bowel sounds, soft, non tender, non distended Genitourinary: normal external genitalia Skin: no rash 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 Lymphatic: no neck adenopathy Laboratory Tests 10/07/17 05:15: White Blood Count 8.8, Red Blood Count 5.13, Hemoglobin 16.2, Hematocrit 48.8, Mean Corpuscular Volume 95, Mean Corpuscular Hemoglobin 31.5H, Mean Corpuscular Hemoglobin Concent 33.1, Red Cell Distribution Width 12.6, Platelet Count 272, Mean Platelet Volume 5.9L, Neutrophils (%) (Auto) 52.1, Lymphocytes (%) (Auto) 38.2, Monocytes (%) (Auto) 8.5, Eosinophils (%) (Auto) 0.0, Basophils (%) (Auto ) 1.1, Sodium Level 136, Potassium Level 4.7, Chloride Level 100, Carbon Dioxide Level 26, Anion Gap 10, Blood Urea Nitrogen 14, Creatinine 1.1, Estimat Glomerular Filtration Rate > 60, Glucose Level 113H, Calcium Level 9.2 Current Medications Medications (Trade) Dose Ordered Sig/Lyssa Route PRN Reason Start Time Stop Time Status Last Admin Dose Admin Acetaminophen (Tylenol) 650 mg Q4H PRN ORAL fever 10/04/17 23:45 11/03/17 23:44 Al Hydroxide/Mg Hydroxide (Mylanta II) 30 ml Q6H PRN ORAL dyspepsia 10/04/17 23:45 11/03/17 23:44 Chlorpromazine (Thorazine) 25 mg TID ORAL 10/05/17 18:00 11/04/17 17:59 10/07/17 13:08 Dextrose (Dextrose 50%) STAT PRN IV Hypoglycemia 10/04/17 23:45 11/03/17 23:44 Diphenhydramine HCl (Benadryl) 50 mg TID ORAL 10/05/17 18:00 11/04/17 17:59 10/07/17 13:08 Divalproex Sodium (Depakote ER) 1,000 mg QHS ORAL 10/05/17 21:00 11/04/17 20:59 10/06/17 20:56 Lorazepam (Ativan 2mg/ml 1ml) 1 mg Q4H PRN IV For Anxiety 10/05/17 15:45 10/12/17 15:44 10/06/17 23:25 Morphine Sulfate (Morphine Sulfate) 1 mg Q4H PRN IVP For Pain 10/04/17 23:45 10/11/17 23:44 Ondansetron HCl (Zofran) 4 mg Q6H PRN IVP Nausea & Vomiting 10/04/17 23:45 11/03/17 23:44 Polyethylene Glycol (Miralax) 17 gm HSPRN PRN ORAL Constipation 10/04/17 23:45 11/03/17 23:44 Quetiapine Fumarate (SEROquel) 200 mg BID ORAL 10/05/17 18:00 11/04/17 17:59 10/07/17 08:48 Zolpidem Tartrate (Ambien) 5 mg HSPRN PRN ORAL Insomnia 10/04/17 23:45 10/11/17 23:44 ETHEL SOTO Oct 07, 2017 15:21
[2017-10-07 19:15] VITALS: BP 137/79
--- NOTE | 2017-10-07 20:00 | Consultation ---
DATE OF CONSULTATION: 10/05/2017 PSYCHOTHERAPY CONSULTATION PROGRESS NOTE CONSULTING PHYSICIAN: Nava Longoria M.D. TREATING ATTENDING PHYSICIAN: Marty Hawthorne D.O. HISTORY OF PRESENT ILLNESS: The patient is a 56-year-old male patient. The patient is from [facility]. The patient was brought to the hospital due to confusion and agitation. The patient has a history of schizoaffective disorder. For these reasons, the patient was also referred for psychotherapeutic services. The patient was internally preoccupied. The patient is responding to internal stimuli, confused, disorganized, and agitated. Denied history of mental illness, states that he did not take any medications, states that he is not on any type of medications of any kind, does not know what illnesses he has. He is very irritable, agitated, and disorganized. Nursing staff also reports that the patient has been verbally abusive towards them. The patient's agitation level also was very high. PAST MEDICAL HISTORY: Includes a history of chronic pain and encephalopathy. ALLERGIES: The patient has no known drug allergies. SUBSTANCE ABUSE HISTORY: There is no indication of alcohol use, illicit substance use, or smoking cigarettes. PSYCHIATRIC HISTORY: The patient has a history of schizoaffective disorder. The patient has a history of psychotropic medications in the past. SOCIAL HISTORY: The patient is a 56-year-old male. The patient is from the [facility]. Financially sustained through [employer]. He is a single male patient. MENTAL STATUS EXAMINATION: The patient is alert and oriented x2, person and place. His mood is irritable. Affect is labile. Thought process is disorganized. Thought content is confused. The patient has poor attention and concentration. Poor insight, judgment, and impulse control. DIAGNOSIS: Schizoaffective disorder. PLAN: This clinician provided the patient with reality orientation and supportive psychotherapy, working with the patient on increasing the patient's compliance with treatment milieu, addressing the patient's coping skills, redirecting the patient's delusional thought process, addressing the patient's impulsivity, agitation, and communication skills, and encouraging the patient to articulate his needs utilizing positive communication skills . Continue behavioral management. Nava Longoria PsyD. DR: SHAVON JOB#: [id number] CC:
[2017-10-07] MEDS: Depakote ER 500mg tab ORAL SCH (20:52)
[2017-10-07 23:15] VITALS: BP 131/76
[2017-10-08 04:51] VITALS: BP 138/86
[2017-10-08 08:00] VITALS: BP 128/85
--- NOTE | 2017-10-08 08:29 | Diagnostic Imaging Report ---
Indication: Altered mental status Technique: Continuous helical CT scanning of the head was performed utilizing automated exposure control without intravenous contrast material. Axial and coronal reconstructions were obtained. Comparison: None CT dose: Total DLP 1457 mGycm; CTDI vol 70.5 mGy Findings: There is no acute intracranial hemorrhage, mass effect or cortical edema. Size and configuration the ventricular system is within normal limits. The posterior fossa and fourth ventricle are unremarkable. Sellar and suprasellar regions are grossly unremarkable. Mild mucosal thickening affects some ethmoid air cells. Remainder the visualized paranasal sinuses and mastoid air cells are clear. There is no depressed calvarial fracture. No focal soft tissue laceration or scalp hematoma is identified. Orbits grossly unremarkable. Impression: No evidence of acute intracranial hemorrhage, mass effect or cortical edema. MRI may be obtained for more sensitive evaluation as clinically indicated. The CT scanner at [facility] is accredited by the [employer] and the scans are performed using protocols designed to limit radiation exposure to as low as reasonably achievable to attain images of sufficient resolution adequate for diagnostic evaluation.
--- NOTE | 2017-10-08 08:29 | Diagnostic Imaging Report ---
Indication: Chest pain Technique: CHEST 1 VIEW Comparison: None Findings: Heart size and mediastinal contours are within normal limits given technique. There is no focal consolidation, pneumothorax or pleural effusion. Osseous structures demonstrate no acute abnormality. Impression: No radiographic evidence of acute cardiopulmonary disease.
[2017-10-08] MEDS: chlorproMAZINE 25mg tab ORAL SCH ×3 (08:30→18:33)
[2017-10-08] MEDS: QUEtiapine 200mg tab ORAL SCH ×2 (08:30→18:33)
--- NOTE | 2017-10-08 11:53 | General Progress Note ---
Assessment/Plan Problem List: (1) Hypertension ICD Codes: I10 - Essential (primary) hypertension SNOMED: 74970188 (2) Encephalopathy acute ICD Codes: G93.40 - Encephalopathy, unspecified SNOMED: 2072449 (3) Colostomy in place ICD Codes: Z93.3 - Colostomy status SNOMED: 266866733, 421323636 Status: stable, progressing Assessment/Plan ot pt diet psyc tx cbc bmp am dc if clear by psyc Subjective Constitutional: Reports: weakness Allergies: Coded Allergies: No Known Allergies (Unverified , 10/04/17) All Systems: reviewed and negative except above Subjective sl confused in bed Objective Last 24 Hour Vital Signs Date Time Temp Pulse Resp B/P (MAP) Pulse Ox O2 Delivery O2 Flow Rate FiO2 10/08/17 08:39 106 Room Air 10/08/17 08:00 98.1 121 20 128/85 95 10/08/17 04:51 97.5 107 20 138/86 97 Room Air 10/07/17 23:15 97.5 97 20 131/76 96 10/07/17 19:15 97.6 97 20 137/79 96 Room Air 10/07/17 12:00 97.5 100 20 133/76 98 Intake and Output 10/08/17 10/09/17 19:00 07:00 # Bowel Movements 1 Height (Feet): 5 Height (Inches): 8.00 Weight (Pounds): 187 General Appearance: lethargic EENT: normal ENT inspection Neck: normal alignment Cardiovascular: normal rate Respiratory/Chest: chest wall non-tender, lungs clear, normal breath sounds Abdomen: normal bowel sounds, non tender, soft Extremities: normal inspection Edema: no edema noted Arm (L), no edema noted Arm (R), no edema noted Leg (L), no edema noted Leg (R), no edema noted Pedal (L), no edema noted Pedal (R), no edema noted Generalized Neurologic: motor weakness Skin: normal pigmentation, warm/dry ANIBAL COLBY Oct 08, 2017 11:53
[2017-10-08 12:00] VITALS: BP 138/75
--- NOTE | 2017-10-08 16:27 | Pulmonology Progress Note ---
Assessment/Plan Problems: (1) Encephalopathy acute (2) Hypertension (3) Colostomy in place Assessment/Plan improving all noted symptomatic treatment all notes reviewed check electrolytes Subjective ROS Limited/Unobtainable: No Constitutional: Reports: no symptoms HEENT: Repors: no symptoms Allergies: Coded Allergies: No Known Allergies (Unverified , 10/04/17) Objective Last 24 Hour Vital Signs Date Time Temp Pulse Resp B/P (MAP) Pulse Ox O2 Delivery O2 Flow Rate FiO2 10/08/17 12:00 97.2 102 20 138/75 96 10/08/17 12:00 Room Air 10/08/17 08:39 106 Room Air 10/08/17 08:00 98.1 121 20 128/85 95 10/08/17 04:51 97.5 107 20 138/86 97 Room Air 10/07/17 23:15 97.5 97 20 131/76 96 10/07/17 19:15 97.6 97 20 137/79 96 Room Air Intake and Output 10/08/17 10/09/17 19:00 07:00 # Bowel Movements 1 General Appearance: WD/WN HEENT: normocephalic, atraumatic Respiratory/Chest: chest wall non-tender, lungs clear, normal breath sounds Cardiovascular: normal peripheral pulses, normal rate Abdomen: normal bowel sounds, soft, non tender Genitourinary: normal external genitalia Skin: no rash 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 Current Medications Medications (Trade) Dose Ordered Sig/Lyssa Route PRN Reason Start Time Stop Time Status Last Admin Dose Admin Acetaminophen (Tylenol) 650 mg Q4H PRN ORAL fever 10/04/17 23:45 11/03/17 23:44 Al Hydroxide/Mg Hydroxide (Mylanta II) 30 ml Q6H PRN ORAL dyspepsia 10/04/17 23:45 11/03/17 23:44 Chlorpromazine (Thorazine) 25 mg TID ORAL 10/05/17 18:00 11/04/17 17:59 10/08/17 14:17 Dextrose (Dextrose 50%) STAT PRN IV Hypoglycemia 10/04/17 23:45 11/03/17 23:44 Diphenhydramine HCl (Benadryl) 50 mg TID ORAL 10/05/17 18:00 11/04/17 17:59 10/08/17 14:18 Divalproex Sodium (Depakote ER) 1,000 mg QHS ORAL 10/05/17 21:00 11/04/17 20:59 10/07/17 20:52 Lorazepam (Ativan 2mg/ml 1ml) 1 mg Q4H PRN IV For Anxiety 10/05/17 15:45 10/12/17 15:44 10/06/17 23:25 Morphine Sulfate (Morphine Sulfate) 1 mg Q4H PRN IVP For Pain 10/04/17 23:45 10/11/17 23:44 Ondansetron HCl (Zofran) 4 mg Q6H PRN IVP Nausea & Vomiting 10/04/17 23:45 11/03/17 23:44 Polyethylene Glycol (Miralax) 17 gm HSPRN PRN ORAL Constipation 10/04/17 23:45 11/03/17 23:44 Quetiapine Fumarate (SEROquel) 200 mg BID ORAL 10/05/17 18:00 11/04/17 17:59 10/08/17 08:30 Zolpidem Tartrate (Ambien) 5 mg HSPRN PRN ORAL Insomnia 10/04/17 23:45 10/11/17 23:44 ETHEL SOTO Oct 08, 2017 16:27
[2017-10-08 20:00] VITALS: BP 132/79
--- NOTE | 2017-10-11 13:47 | Discharge Summary ---
Discharge Summary Hospital Course Date of Admission Oct 04, 2017 at 22:58 Date of Discharge Oct 08, 2017 at 20:16 Admitting Diagnosis encephalopathy HPI Hero Tello is a 56 year old male who was admitted on Oct 04, 2017 at 22:58 for Encephalopathy Hospital Course dc summary #[id number] Discharge Medications Continued Medications: Benztropine Mesylate (Cogentin 1mg*) 1 Mg Tablet 1 MG ORAL EVERY 12 HOURS, TAB Chlorpromazine (Chlorpromazine HCl) 25 Mg Tablet 50 MG PO TID, TAB Clonazepam* (Klonopin*) 1 Mg Tablet 1 MG ORAL BID, #15 TAB 0 Refills Divalproex Sodium* (Depakote*) 250 Mg Tablet.dr 1000 MG PO QHS, TAB Folic Acid* (Folic Acid*) 1 Mg Tablet 1 MG ORAL DAILY, TAB Metoprolol Tartrate* (Metoprolol Tartrate*) 50 Mg Tablet 50 MG ORAL EVERY 12 HOURS, TAB 0 Refills Mirtazapine* (Mirtazapine*) 15 Mg Tablet 15 MG ORAL QHS, TAB Omeprazole (Omeprazole) 20 Mg Tablet.dr 20 MG ORAL ACBREAKFAST, TAB Paliperidone Palmitate (Invega Sustenna) 234 Mg/1.5 Ml Syringe 234 MG IM monthly, EA Quetiapine Fumarate* (Seroquel*) 200 Mg Tablet 200 MG ORAL TWICE A DAY, TAB Quetiapine Fumarate* (Seroquel*) 200 Mg Tablet 300 MG ORAL QHS, TAB Risperidone* (Risperdal*) 2 Mg Tablet 4 MG ORAL BID, #30 TAB 0 Refills Discharge Condition Upon Discharge: stable Discharge Disposition Patient was discharged to SNF/Subacute Facility(03) Discharge Diagnoses: Discharge Instructions Discharge Instructions Special Instructions I have been assigned to complete a D/C Summary on this account. I was not involved in the patient management Ema Pop NP (Vanchtein) Oct 11, 2017 13:47
--- NOTE | 2017-10-12 06:00 | Discharge Summary 2 SIG ---
DATE OF ADMISSION: 10/04/2017 DATE OF DISCHARGE: 10/08/2017 REASON FOR ADMISSION: 56-year-old male, presented to emergency room from detention facility for evaluation. Apparently, he was acting bizarre. He removed his colostomy bag and started to smearing feces in the room. Paramedics were called, and the patient was brought in to ED for evaluation. The patient was agitated and was unable to recall any events as they were described. He denied headaches. He denied chest pain or shortness of breath. Vital signs were stable. Laboratory workup was unremarkable. No leukocytosis. Stable hemoglobin and hematocrit. EKG revealed normal sinus rhythm. No acute ischemic changes. Urinalysis revealed no evidence of UTI. Chest x-ray revealed no acute cardiopulmonary pathology. The patient was admitted for further management of acute encephalopathy. HOSPITAL COURSE: The patient was admitted. Neurology and Psychiatric consults were requested. Per Neurology, the patient had mental retardation with acute psychotic behavior. neurologst wanted to rule out seizure disorder with amnesic episode. EEG was canceled since the patient declined. Psychiatrist seen and evaluated the patient and diagnosed the patient with schizoaffective, bipolar type. Depakote level at borderline 48. Psychiatric medication regimen was optimized. Colostomy care provided. Blood pressure was managed with beta-beata, remained stable. CT of the head revealed no acute intracranial pathology. Venous Duplex of bilateral lower extremities was negative. The patient was working with physical and occupational therapists. The patient was stable for discharge back to detention facility. FINAL DIAGNOSES: 1. Acute encephalopathy. 2. Mental retardation with acute psychotic behavior. 3. Schizoaffective, bipolar type. 4. Colostomy in place. 5. Rule out seizure disorder with amnesic episode. 6. Hypertension. DISCHARGE MEDICATIONS: See medication reconciliation list. DISCHARGE INSTRUCTIONS: The patient was discharged to detention facility. FOLLOWUP: Follow up with medical doctor at the facility. Marty Hawthorne D.O. I have been assigned to dictate discharge summary on this account and I was not involved in the patient's management. Ema Pop N.P. (Vanchtein) DR: Mary Ann JOB#: [id number] CC: HILARY
--- NOTE | 2017-10-14 11:01 | Diagnostic Imaging Report ---
APPROVED REPORT CPT Code: 60253 Present Symptoms Comments: Pain BILATERAL: Imaging reveals a patent deep venous system bilaterally. There is no evidence of thrombus within the femoral, popliteal or tibial segments. The greater saphenous veins are also within normal limits. Doppler indicates normal spontaneous flow within these segments.
== END 2017-10-08 20:16 | DRG 71 ==
LOC: EDBD 22:23 → EMR 22:56 → 4E 22:58 → EDBEDREQ 23:08 → 4E 10-05 00:40
DX: G93.40 Encephalopathy, unspecified (principal); F23 Brief psychotic disorder; G62.9 Polyneuropathy, unspecified; I10 Essential (primary) hypertension; Z43.3 Encounter for attention to colostomy; F25.0 Schizoaffective disorder, bipolar type; G89.29 Other chronic pain; F79 Unspecified intellectual disabilities; R45.1 Restlessness and agitation; R41.0 Disorientation, unspecified
CPT/HCPCS: 36415; 70450; 71010; 80048; 80053; 80061; 80164; 80307; 81003; 82550; 82553; 83690; 84443; 84484; 85025; 93005; 93970; 99285

== ENCOUNTER 2017-11-23 14:58 | Inpatient (IN) | payer MEDICARE, MEDICAID ==
[~2017-11-23] VITALS: Ht 172.7 cm; Wt 77.6 kg
[~2017-11-23 14:58] MED LIST changes: +COGENTIN1 MG ORAL; +DEPAKOTE250 MG PO; +FOLIC ACID1 MG ORAL; +INVEGA SUS234 MG/1.5 IM; +KLONOPIN1 MG ORAL; +METOPROLOL TART50 MG ORAL; +MIRTAZAPINE15 M3 ORAL; +OMEPRAZOLE20 M3 ORAL; +RISPERDAL2 MG ORAL; +SEROQUEL200 MG ORAL; -Sodium Chloride 500ML 500 ML IV ONE; +THORAZINE25 MG PO
[2017-11-23] MEDS ORDERED: ACETAMINOPHEN325 M1 ORAL (15:07)
[2017-11-23] MEDS ORDERED: HALOPERIDOL1 MG ORAL (15:07)
[2017-11-23] MEDS ORDERED: SENNA8.6 M2 PO (15:07)
[2017-11-23] MEDS ORDERED: TRAMADOL HCL50 MG ORAL (15:07)
[2017-11-23 15:25] VITALS: BP 125/69
[2017-11-23] MEDS ORDERED: Sodium Chloride 500ML 500 ML IV ONE (15:30)
[2017-11-23 16:04] LABS: BASOPHILS % (AUTO) 0.8 % (0.0-2.0); HEMOGLOBIN 15.8 G/DL (14.2-18.0); LYMPHOCYTES % (AUTO) 21.2 % (20.0-45.0); MEAN CORPUSCULAR VOLUME 94 FL (80-99); MONOCYTES % (AUTO) 10.8 % (1.0-10.0); NEUTROPHILS % (AUTO) 67.1 % (45.0-75.0); PLATELET COUNT 265 K/UL (150-450); RED CELL DISTRIBUTION WIDTH 11.5 % (11.6-14.8); WHITE BLOOD COUNT 11.2 K/UL (4.8-10.8)
[2017-11-23 16:24] LABS: ANION GAP 7 mmol/L (5-15); BLOOD UREA NITROGEN 11 mg/dL (7-18); CALCIUM 8.9 MG/DL (8.5-10.1); CARBON DIOXIDE 31 MMOL/L (21-32); CHLORIDE 91 MMOL/L (98-107); POTASSIUM 4.6 MMOL/L (3.5-5.1); SODIUM 129 MMOL/L (136-145)
[2017-11-23 16:30] LABS: ALANINE AMINOTRANSFERASE 14 U/L (12-78); ALBUMIN 3.4 G/DL (3.4-5.0); ALBUMIN/GLOBULIN RATIO 0.8 (1.0-2.7); ALKALINE PHOSPHATASE 117 U/L (46-116); ASPARTATE AMINO TRANSFERASE 11 U/L (15-37); BILIRUBIN,TOTAL 0.4 MG/DL (0.2-1.0)
[2017-11-23] MEDS ORDERED: Morphine Sulfate 2mg/ml Inj IVP PRN (17:30)
[2017-11-23] MEDS ORDERED: Zolpidem 5mg tab ORAL PRN (17:30)
[2017-11-23] MEDS ORDERED: traMADol 50mg tab ORAL PRN (17:30)
[2017-11-23] MEDS ORDERED: LORazepam Inj 2mg/ml 1ml IV PRN (17:30)
[2017-11-23] MEDS ORDERED: Mylanta II UD 30ml ORAL PRN (17:30)
[2017-11-23] MEDS ORDERED: Miralax 17gm pkt ORAL PRN (17:30)
[2017-11-23] MEDS ORDERED: DEPAKOTE ER500 MG ORAL (17:37)
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
--- NOTE | 2017-11-23 17:38 | Neurology Progress Note ---
Objective Physical Exam Last Vital Signs Date Time Temp Pulse Resp B/P (MAP) Pulse Ox O2 Delivery O2 Flow Rate FiO2 11/23/17 15:25 98.8 77 17 125/69 Room Air 11/23/17 14:58 95 Laboratory Tests Test 11/23/17 15:57 11/23/17 16:15 White Blood Count 11.2 K/UL (4.8-10.8) H Red Blood Count 4.90 M/UL (4.70-6.10) Hemoglobin 15.8 G/DL (14.2-18.0) Hematocrit 46.0 % (42.0-52.0) Mean Corpuscular Volume 94 FL (80-99) Mean Corpuscular Hemoglobin 32.2 PG (27.0-31.0) H Mean Corpuscular Hemoglobin Concent 34.3 G/DL (32.0-36.0) Red Cell Distribution Width 11.5 % (11.6-14.8) L Platelet Count 265 K/UL (150-450) Mean Platelet Volume 5.9 FL (6.5-10.1) L Neutrophils (%) (Auto) 67.1 % (45.0-75.0) Lymphocytes (%) (Auto) 21.2 % (20.0-45.0) Monocytes (%) (Auto) 10.8 % (1.0-10.0) H Eosinophils (%) (Auto) 0.0 % (0.0-3.0) Basophils (%) (Auto) 0.8 % (0.0-2.0) Sodium Level 129 MMOL/L (136-145) L Potassium Level 4.6 MMOL/L (3.5-5.1) Chloride Level 91 MMOL/L (98-107) L Carbon Dioxide Level 31 MMOL/L (21-32) Anion Gap 7 mmol/L (5-15) Blood Urea Nitrogen 11 mg/dL (7-18) Creatinine 1.0 MG/DL (0.55-1.30) Estimat Glomerular Filtration Rate > 60 mL/min (>60) Glucose Level 115 MG/DL (74-106) H Calcium Level 8.9 MG/DL (8.5-10.1) Total Bilirubin 0.4 MG/DL (0.2-1.0) Aspartate Amino Transf (AST/SGOT) 11 U/L (15-37) L Alanine Aminotransferase (ALT/SGPT) 14 U/L (12-78) Alkaline Phosphatase 117 U/L (46-116) H Total Protein 7.5 G/DL (6.4-8.2) Albumin 3.4 G/DL (3.4-5.0) Globulin 4.1 g/dL Albumin/Globulin Ratio 0.8 (1.0-2.7) L Salicylates Level 1.7 ug/mL (2.8-20) L Acetaminophen Level < 2 MCG/ML (10-30) L Serum Alcohol < 3 mg/dL Urine Opiates Screen Negative (NEGATIVE) Urine Barbiturates Screen Negative (NEGATIVE) Phencyclidine (PCP) Screen Negative (NEGATIVE) Urine Amphetamines Screen Negative (NEGATIVE) Urine Benzodiazepines Screen Negative (NEGATIVE) Urine Cocaine Screen Negative (NEGATIVE) Urine Marijuana (THC) Screen Negative (NEGATIVE) Impression/Recommendations Recommendations #[id number] PETER COLBERT Nov 23, 2017 17:38
[2017-11-23] MEDS ORDERED: QUEtiapine 200mg tab ORAL SCH (18:00)
[2017-11-23] MEDS ORDERED: chlorproMAZINE 25mg tab ORAL SCH (18:00)
[2017-11-23] MEDS ORDERED: HALOPERIDO100 MG/1 M IM ×2 (18:02→18:11)
[2017-11-23] MEDS ORDERED: BENADRYL25 MG ORAL (18:08)
[2017-11-23] MEDS ORDERED: RISPERDAL1 MG PO (18:17)
[2017-11-23 18:35] VITALS: BP 134/64
[2017-11-23 20:00] VITALS: BP 136/77
[2017-11-23] MEDS: Depakote ER 500mg tab ORAL SCH (21:14)
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
[2017-11-23] MEDS: Metoprolol Tartrate 50mg tab ORAL SCH (21:18)
[2017-11-23 23:43] VITALS: BP 121/69
[2017-11-24 04:00] VITALS: BP 120/66
[2017-11-24 07:01] LABS: BASOPHILS % (AUTO) 0.7 % (0.0-2.0); HEMATOCRIT 43.1 % (42.0-52.0); HEMOGLOBIN 14.9 G/DL (14.2-18.0); LYMPHOCYTES % (AUTO) 22.3 % (20.0-45.0); MEAN CORPUSCULAR VOLUME 94 FL (80-99); MONOCYTES % (AUTO) 12.6 % (1.0-10.0); NEUTROPHILS % (AUTO) 64.3 % (45.0-75.0); PLATELET COUNT 240 K/UL (150-450); RED CELL DISTRIBUTION WIDTH 11.6 % (11.6-14.8); WHITE BLOOD COUNT 10.2 K/UL (4.8-10.8)
[2017-11-24 07:40] LABS: ALANINE AMINOTRANSFERASE 17 U/L (12-78); ALBUMIN/GLOBULIN RATIO 0.8 (1.0-2.7); ALKALINE PHOSPHATASE 104 U/L (46-116); ANION GAP 7 mmol/L (5-15); ASPARTATE AMINO TRANSFERASE 12 U/L (15-37); BILIRUBIN,TOTAL 0.4 MG/DL (0.2-1.0); BLOOD UREA NITROGEN 6 mg/dL (7-18); CALCIUM 8.6 MG/DL (8.5-10.1); CARBON DIOXIDE 27 MMOL/L (21-32); CHLORIDE 95 MMOL/L (98-107); CHOLESTEROL 110 MG/DL (< 200); CREATININE 0.8 MG/DL (0.55-1.30); HDL CHOLESTEROL 37 MG/DL (40-60); POTASSIUM 4.4 MMOL/L (3.5-5.1); SODIUM 129 MMOL/L (136-145); TRIGLYCERIDES 113 MG/DL (30-150)
[2017-11-24 07:49] VITALS: BP 124/73
[2017-11-24] MEDS: Metoprolol Tartrate 50mg tab ORAL SCH ×2 (09:03→20:09)
[2017-11-24] MEDS: Depakote ER 500mg tab ORAL SCH ×2 (09:08→20:13)
[2017-11-24 11:49] VITALS: BP 118/71
--- NOTE | 2017-11-24 12:53 | Diagnostic Imaging Report ---
Indication: Altered mental status Technique: Continuous helical CT scanning of the head was performed without intravenous contrast material. Axial and coronal 5 mm sections were generated. Radiation dose was minimized using automated exposure control Dose: Total Dose Length Product - DLP 1464.[address] Dose Index - CTDIvol(s) 70.38 mGy. Comparison: 10/05/2017 Findings: The ventricular system is normal in size and configuration. There is no shift of midline structures. No abnormal extra-axial fluid collections are noted. There is no evidence of intracerebral bleeding. No other abnormal high or low density areas are noted within the brain. The mastoids are sclerotic bilaterally. This is also evident previously. Impression: Normal CT scan of the head without contrast material. 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 Noncontrast
[2017-11-24 16:00] VITALS: BP 119/68
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
[2017-11-24 20:03] VITALS: BP 127/74
--- NOTE | 2017-11-24 23:00 | Consultation ---
DATE OF CONSULTATION: 11/24/2017 NEPHROLOGY CONSULTATION CONSULTING PHYSICIAN: Theodora Ruano M.D. REFERRING PHYSICIAN: Marty Hawthorne D.O. REASON FOR CONSULTATION: Hyponatremia. HISTORY OF PRESENT ILLNESS: The patient is an unfortunate 56-year-old male with past medical history significant for history of colon cancer, hypertension, history of psychiatric disease, who was brought in to [facility] for evaluation of increased agitation and combative behavior. Upon arrival in the ER, the patient was found to have sodium 129, was started on IV fluids. I was called for management of renal disease and electrolyte imbalance. PAST MEDICAL HISTORY: 1. History of hypertension. 2. History of colon cancer, status post colostomy. 3. History of psychiatric disease. HOME MEDICATIONS: 1. Depakote 1000 mg p.o. daily. 2. Folic acid 1 mg p.o. daily. 3. Haloperidol p.o. daily. 4. Metoprolol 5 mg p.o. daily. 5. Risperidone 3 mg p.o. daily. 6. Tylenol 650 q.6 h. p.r.n. pain. 7. Senna 8.6 g p.o. nightly. FAMILY HISTORY: Noncontributory. REVIEW OF SYSTEMS: GENERAL: He complained of generalized weakness. Denied any fever, chills, or night sweats. HEAD AND NECK: Denies any dysphagia, odynophagia, blurry vision, headache, or neck stiffness. PULMONARY: Denies any shortness of breath, cough, or sputum. CARDIOVASCULAR: Denies any chest pain or palpitations. GASTROINTESTINAL: Denies any nausea, vomiting, diarrhea, hematemesis, or hematochezia. GENITOURINARY: Denies any dysuria, frequency, or hematuria. MUSCULOSKELETAL: Complained of generalized weakness. Denies any localized weakness or numbness. PHYSICAL EXAMINATION: VITAL SIGNS: The patient has temperature of 98, blood pressure 121/69, pulse rate of 97, and respiratory rate of 20. HEAD AND NECK: No JVP. No LAD. No thyromegaly. Extraocular movement intact. Pupils are reactive to light and accommodation. LUNGS: Clear to auscultation. CARDIAC: Regular rate and rhythm. S1 and S2. No murmur. No rub. ABDOMEN: Soft, nontender, nondistended. EXTREMITIES: No edema. No clubbing. No cyanosis. LABORATORY AND DIAGNOSTIC DATA: WBC count of 10.9, hemoglobin of 14.9, hematocrit of 43, and platelet count of 240,000. Chemistry revealed sodium 129, potassium 4.4, chloride 95, bicarbonate 27, BUN 6, creatinine 0.8, and glucose of 98. Calcium of 8.6. AST of 12 and ALT of 17. Albumin of 3. Cholesterol of 110, LDL of 66, and HDL 37. TSH of 1.28. ASSESSMENT: 1. hyponatremia, most likely due to antipsychotic medication. 2. Increased agitation and behavioral change. 3. History of colostomy. 4. History of colon cancer. PLAN: Mix all IV piggyback with normal saline. Free water restriction. Check urine osmolality. Check urine sodium and potassium. If addition of urine sodium and potassium less than 150, the patient will benefit from normal saline. Monitor renal function and electrolytes closely. Again, I would like to thank Dr. Marty Hawthorne for allowing me to participate in the care of this patient. Theodora Ruano M.D. DR: LYN JOB#: [id number] CC:
[2017-11-25] VITALS: BP 119/69
--- NOTE | 2017-11-25 00:45 | History and Physical Report ---
DATE OF ADMISSION: 11/23/2017 TIME SEEN: At 3 p.m. CONSULTANTS: 1. Miguel Angel Sahni M.D. 2. Alex Batista M.D. 3. Akin Zamora M.D. CHIEF COMPLAINT: Altered mental status, agitation, and weakness. BRIEF HISTORY: This is a 56-year-old male from [facility] presents with above-mentioned diagnoses, admitted for further treatment. Currently, calm in bed, slightly confused, not talking much. PAST MEDICAL HISTORY: Hypertension, encephalopathy, weakness, and drug abuse. PAST SURGICAL HISTORY: Colostomy. MEDICATIONS: Klonopin, Depakote, Haldol, Lopressor, Risperdal, Ultram, Tylenol, morphine, MiraLax, and Zofran. ALLERGIES: Denies. SOCIAL HISTORY: Positive smoke. Positive alcohol. Positive marijuana use. REVIEW OF SYSTEMS: No chest pain. No shortness of breath. No nausea, vomiting, or diarrhea. PHYSICAL EXAMINATION: GENERAL: Slightly anxious in bed, oriented x2, in no acute distress. VITAL SIGNS: Temperature 98 degrees, pulse 69, respirations 21, and blood pressure 118/71. CARDIOVASCULAR: No murmurs. LUNGS: Distant and clear. ABDOMEN: Bowel sounds positive. Nontender. Nondistended. EXTREMITIES: No cyanosis or edema. NEUROLOGIC: The patient moves all extremities, slightly weak. LABORATORY AND DIAGNOSTIC DATA: Yesterday, white count 11.2. Today, CBC is normal. BMP shows hyponatremia, sodium 129 and chloride 95, otherwise BMP is normal. Urine toxicology is pretty much negative. ASSESSMENT: 1. Altered mental status. 2. ____ . 3. Agitation. 4. Weakness. 5. Drug abuse. PLAN: 1. Continue pre-medications. 2. Blood pressure control. 3. Nephrology followup. 4. Detox. 5. Dietary follow up. 6. Psychiatric treatment. 7. Neurology evaluation. 8. CBC and BMP in the morning. 9. Transfer to Psychiatry if cleared. Marty Hawthorne D.O. DR: JENNIFER JOB#: [id number] CC:
[2017-11-25 04:00] VITALS: BP 119/76
[2017-11-25 07:57] LABS: BASOPHILS % (AUTO) 0.7 % (0.0-2.0); EOSINOPHILS % (AUTO) 0.1 % (0.0-3.0); HEMATOCRIT 45.3 % (42.0-52.0); HEMOGLOBIN 15.9 G/DL (14.2-18.0); LYMPHOCYTES % (AUTO) 29.2 % (20.0-45.0); MEAN CORPUSCULAR VOLUME 93 FL (80-99); MONOCYTES % (AUTO) 10.6 % (1.0-10.0); NEUTROPHILS % (AUTO) 59.5 % (45.0-75.0); PLATELET COUNT 242 K/UL (150-450); RED BLOOD COUNT 4.86 M/UL (4.70-6.10); RED CELL DISTRIBUTION WIDTH 11.4 % (11.6-14.8); WHITE BLOOD COUNT 8.6 K/UL (4.8-10.8)
[2017-11-25 08:00] VITALS: BP 112/74
[2017-11-25 08:22] LABS: ANION GAP 10 mmol/L (5-15); BLOOD UREA NITROGEN 8 mg/dL (7-18); CALCIUM 8.7 MG/DL (8.5-10.1); CARBON DIOXIDE 25 MMOL/L (21-32); CHLORIDE 94 MMOL/L (98-107); CREATININE 0.8 MG/DL (0.55-1.30); POTASSIUM 4.4 MMOL/L (3.5-5.1); SODIUM 129 MMOL/L (136-145)
[2017-11-25] MEDS: Metoprolol Tartrate 50mg tab ORAL SCH ×2 (08:58→21:00)
[2017-11-25] MEDS: Depakote ER 500mg tab ORAL SCH ×2 (08:58→21:17)
--- NOTE | 2017-11-25 09:01 | Nephrology Progress Note ---
Assessment/Plan Assessment 1. isovolemic hyponatremia, most likely due to antipsychotic medication. 2. Increased agitation and behavioral change. 3. History of colostomy. 4. History of colon cancer. Plan free water restriction monitoring renal function replace electrolyte as need avoid NSAID ( cause hyponatremia ) may need to start demeclocycline if na goes lower fallow up with urine study Subjective Constitutional: Reports: no symptoms HEENT: Reports: no symptoms Genitourinary: Reports: no symptoms Neurologic/Psychiatric: Reports: no symptoms Subjective awake no acute events overnight Objective Objective Last 24 Hour Vital Signs Date Time Temp Pulse Resp B/P (MAP) Pulse Ox O2 Delivery O2 Flow Rate FiO2 11/25/17 08:00 97.1 78 20 112/74 96 11/25/17 04:00 97.7 65 18 119/76 97 Room Air 11/25/17 00:00 97.9 75 18 119/69 96 Room Air 11/24/17 20:09 79 127/74 11/24/17 20:03 97.9 79 18 127/74 95 Room Air 11/24/17 16:00 97.9 72 18 119/68 96 11/24/17 11:49 98.4 69 21 118/71 96 Room Air 11/24/17 09:03 79 124/73 Intake and Output 11/24/17 11/25/17 19:00 07:00 Intake Total 720 ml 2000 ml Output Total 400 ml 1600 ml Balance 320 ml 400 ml Intake Oral 720 ml 2000 ml Output Urine Total 1200 ml Stool Total 400 ml 400 ml # Bowel Movements 1 1 Laboratory Tests 11/24/17 20:20: Urine Eosinophils None seen, Urine Osmolality 184L, Urine Random Creatinine [ Pending], Urine Random Microalbumin [Pending], Urine Random Total Protein 2, Urine Random Sodium 29, Urine Creatinine 23.9L, Urine Microalbumin/Creatinine Ratio [Pending] 11/25/17 07:20: White Blood Count 8.6, Red Blood Count 4.86, Hemoglobin 15.9, Hematocrit 45.3, Mean Corpuscular Volume 93, Mean Corpuscular Hemoglobin 32.7H, Mean Corpuscular Hemoglobin Concent 35.1, Red Cell Distribution Width 11.4L, Platelet Count 242, Mean Platelet Volume 5.4L, Neutrophils (%) (Auto) 59.5, Lymphocytes (%) (Auto) 29.2, Monocytes (%) (Auto) 10.6H, Eosinophils (%) (Auto) 0.1, Basophils (%) ( Auto) 0.7, Sodium Level 129L, Potassium Level 4.4, Chloride Level 94L, Carbon Dioxide Level 25, Anion Gap 10, Blood Urea Nitrogen 8, Creatinine 0.8, Estimat Glomerular Filtration Rate > 60, Glucose Level 122H, Calcium Level 8.7 Height (Feet): 5 Height (Inches): 8.00 Weight (Pounds): 171 Objective HEAD AND NECK: No JVP. No LAD. No thyromegaly. Extraocular movement intact. Pupils are reactive to light and accommodation. LUNGS: Clear to auscultation. CARDIAC: Regular rate and rhythm. S1 and S2. No murmur. No rub. ABDOMEN: Soft, nontender, nondistended. EXTREMITIES: No edema. No clubbing. No cyanosis. RANDA HERNANDEZ Nov 25, 2017 09:01
--- NOTE | 2017-11-25 11:49 | General Progress Note ---
Assessment/Plan Problem List: (1) Weakness ICD Codes: R53.1 - Weakness SNOMED: 51081112 (2) Behavioral disorder SNOMED: 345702547 (3) Hypertension ICD Codes: I10 - Essential (primary) hypertension SNOMED: 67450943 (4) Colostomy in place ICD Codes: Z93.3 - Colostomy status SNOMED: 397307353, 996285393 (5) Delirium ICD Codes: R41.0 - Disorientation, unspecified SNOMED: 1694031 (6) HTN (hypertension) ICD Codes: I10 - Essential (primary) hypertension SNOMED: 36650923 Status: unchanged Assessment/Plan ot pt diet cbc bmp am dc plan to psyc Subjective Constitutional: Reports: weakness Allergies: Coded Allergies: No Known Allergies (Unverified , 10/04/17) All Systems: reviewed and negative except above Subjective sl confused in bed Objective Last 24 Hour Vital Signs Date Time Temp Pulse Resp B/P (MAP) Pulse Ox O2 Delivery O2 Flow Rate FiO2 11/25/17 08:58 78 112/74 11/25/17 08:00 97.1 78 20 112/74 96 11/25/17 04:00 97.7 65 18 119/76 97 Room Air 11/25/17 00:00 97.9 75 18 119/69 96 Room Air 11/24/17 20:09 79 127/74 11/24/17 20:03 97.9 79 18 127/74 95 Room Air 11/24/17 16:00 97.9 72 18 119/68 96 11/24/17 11:49 98.4 69 21 118/71 96 Room Air Intake and Output 11/24/17 11/25/17 19:00 07:00 Intake Total 720 ml 2000 ml Output Total 400 ml 1600 ml Balance 320 ml 400 ml Intake Oral 720 ml 2000 ml Output Urine Total 1200 ml Stool Total 400 ml 400 ml # Bowel Movements 1 1 Laboratory Tests 11/24/17 20:20: Urine Eosinophils None seen, Urine Osmolality 184L, Urine Random Creatinine [ Pending], Urine Random Microalbumin [Pending], Urine Random Total Protein 2, Urine Random Sodium 29, Urine Creatinine 23.9L, Urine Microalbumin/Creatinine Ratio [Pending] 11/25/17 07:20: White Blood Count 8.6, Red Blood Count 4.86, Hemoglobin 15.9, Hematocrit 45.3, Mean Corpuscular Volume 93, Mean Corpuscular Hemoglobin 32.7H, Mean Corpuscular Hemoglobin Concent 35.1, Red Cell Distribution Width 11.4L, Platelet Count 242, Mean Platelet Volume 5.4L, Neutrophils (%) (Auto) 59.5, Lymphocytes (%) (Auto) 29.2, Monocytes (%) (Auto) 10.6H, Eosinophils (%) (Auto) 0.1, Basophils (%) ( Auto) 0.7, Sodium Level 129L, Potassium Level 4.4, Chloride Level 94L, Carbon Dioxide Level 25, Anion Gap 10, Blood Urea Nitrogen 8, Creatinine 0.8, Estimat Glomerular Filtration Rate > 60, Glucose Level 122H, Calcium Level 8.7 Height (Feet): 5 Height (Inches): 8.00 Weight (Pounds): 171 General Appearance: lethargic, confused EENT: normal ENT inspection Neck: normal alignment Cardiovascular: normal peripheral pulses, normal rate, regular rhythm Respiratory/Chest: chest wall non-tender, lungs clear, normal breath sounds Abdomen: normal bowel sounds, non tender, soft Extremities: normal inspection Edema: no edema noted Arm (L), no edema noted Arm (R), no edema noted Leg (L), no edema noted Leg (R), no edema noted Pedal (L), no edema noted Pedal (R), no edema noted Generalized Neurologic: motor weakness Skin: normal pigmentation, warm/dry ANIBAL COLBY Nov 25, 2017 11:49
--- NOTE | 2017-11-25 16:05 | Pulmonology Progress Note ---
Assessment/Plan Problems: (1) Delirium (2) Colostomy in place (3) Hypertension (4) HTN (hypertension) Assessment/Plan improving symptomatic treatment psych f/u monitor bp colostomy care Subjective ROS Limited/Unobtainable: No Constitutional: Reports: no symptoms HEENT: Repors: no symptoms Respiratory: Reports: no symptoms Allergies: Coded Allergies: No Known Allergies (Unverified , 10/04/17) Objective Last 24 Hour Vital Signs Date Time Temp Pulse Resp B/P (MAP) Pulse Ox O2 Delivery O2 Flow Rate FiO2 11/25/17 08:58 78 112/74 11/25/17 08:00 97.1 78 20 112/74 96 11/25/17 04:00 97.7 65 18 119/76 97 Room Air 11/25/17 00:00 97.9 75 18 119/69 96 Room Air 11/24/17 20:09 79 127/74 11/24/17 20:03 97.9 79 18 127/74 95 Room Air Intake and Output 11/24/17 11/25/17 19:00 07:00 Intake Total 720 ml 2000 ml Output Total 400 ml 1600 ml Balance 320 ml 400 ml Intake Oral 720 ml 2000 ml Output Urine Total 1200 ml Stool Total 400 ml 400 ml # Bowel Movements 1 1 General Appearance: WD/WN HEENT: normocephalic Respiratory/Chest: chest wall non-tender, normal breath sounds Cardiovascular: normal peripheral pulses, normal rate Abdomen: normal bowel sounds, soft, non tender Extremities: no cyanosis Skin: no rash Laboratory Tests 11/24/17 20:20: Urine Eosinophils None seen, Urine Osmolality 184L, Urine Random Creatinine [ Pending], Urine Random Microalbumin [Pending], Urine Random Total Protein 2, Urine Random Sodium 29, Urine Creatinine 23.9L, Urine Microalbumin/Creatinine Ratio [Pending] 11/25/17 07:20: White Blood Count 8.6, Red Blood Count 4.86, Hemoglobin 15.9, Hematocrit 45.3, Mean Corpuscular Volume 93, Mean Corpuscular Hemoglobin 32.7H, Mean Corpuscular Hemoglobin Concent 35.1, Red Cell Distribution Width 11.4L, Platelet Count 242, Mean Platelet Volume 5.4L, Neutrophils (%) (Auto) 59.5, Lymphocytes (%) (Auto) 29.2, Monocytes (%) (Auto) 10.6H, Eosinophils (%) (Auto) 0.1, Basophils (%) ( Auto) 0.7, Sodium Level 129L, Potassium Level 4.4, Chloride Level 94L, Carbon Dioxide Level 25, Anion Gap 10, Blood Urea Nitrogen 8, Creatinine 0.8, Estimat Glomerular Filtration Rate > 60, Glucose Level 122H, Calcium Level 8.7 Current Medications Medications (Trade) Dose Ordered Sig/Lyssa Route PRN Reason Start Time Stop Time Status Last Admin Dose Admin Acetaminophen (Tylenol) 650 mg Q4H PRN ORAL fever (t>100.5F) 11/23/17 17:30 12/23/17 17:29 Al Hydroxide/Mg Hydroxide (Mylanta II) 30 ml Q6H PRN ORAL dyspepsia 11/23/17 17:30 12/23/17 17:29 Clonazepam (KlonoPIN) 1 mg BID ORAL 11/23/17 21:00 11/30/17 20:59 11/25/17 08:57 Dextrose (Dextrose 50%) STAT PRN IV Hypoglycemia 11/23/17 17:30 12/23/17 17:29 Divalproex Sodium (Depakote ER) 1,000 mg Q12HR ORAL 11/23/17 21:00 12/23/17 20:59 11/25/17 08:58 Haloperidol (Haldol) 5 mg BID ORAL 11/23/17 21:00 12/23/17 20:59 11/25/17 08:57 Lorazepam (Ativan 2mg/ml 1ml) 0.5 mg Q4H PRN IV For Anxiety 11/23/17 17:30 11/30/17 17:29 Metoprolol Tartrate (Lopressor) 50 mg EVERY 12 HOURS ORAL 11/23/17 21:00 12/23/17 20:59 11/25/17 08:58 Morphine Sulfate (Morphine Sulfate) 1 mg Q4H PRN IVP Severe Pain (Pain Scale 7-10) 11/23/17 17:30 11/30/17 17:29 11/25/17 14:11 Ondansetron HCl (Zofran) 4 mg Q6H PRN IVP Nausea & Vomiting 11/23/17 17:30 12/23/17 17:29 Polyethylene Glycol (Miralax) 17 gm HSPRN PRN ORAL Constipation 11/23/17 17:30 12/23/17 17:29 11/24/17 09:28 Risperidone (RisperDAL) 3 mg Q12HR ORAL 11/23/17 21:00 12/23/17 20:59 11/25/17 08:57 Tramadol HCl (Ultram) 50 mg Q6H PRN ORAL Moderate Pain (Pain Scale 4-6) 11/23/17 17:30 11/30/17 17:29 11/23/17 20:15 Zolpidem Tartrate (Ambien) 5 mg HSPRN PRN ORAL Insomnia 11/23/17 17:30 11/30/17 17:29 ETHEL SOTO Nov 25, 2017 16:05
--- NOTE | 2017-11-25 17:54 | Cardiology Progress Note ---
Assessment/Plan Assessment/Plan Rhe patient is seen and examined, full consultation note will be dictated soon. Objective Last 24 Hour Vital Signs Date Time Temp Pulse Resp B/P (MAP) Pulse Ox O2 Delivery O2 Flow Rate FiO2 11/25/17 08:58 78 112/74 11/25/17 08:00 97.1 78 20 112/74 96 11/25/17 04:00 97.7 65 18 119/76 97 Room Air 11/25/17 00:00 97.9 75 18 119/69 96 Room Air 11/24/17 20:09 79 127/74 11/24/17 20:03 97.9 79 18 127/74 95 Room Air Intake and Output 11/24/17 11/25/17 19:00 07:00 Intake Total 720 ml 2000 ml Output Total 400 ml 1600 ml Balance 320 ml 400 ml Intake Oral 720 ml 2000 ml Output Urine Total 1200 ml Stool Total 400 ml 400 ml # Bowel Movements 1 1 Laboratory Tests Test 11/24/17 20:20 11/25/17 07:20 Urine Eosinophils None seen Urine Osmolality 184 mOsm/kg (429-449) L Urine Random Creatinine Pending Urine Random Microalbumin Pending Urine Random Total Protein 2 MG/DL (< 11.9) Urine Random Sodium 29 MEQ/L (20-110) Urine Creatinine 23.9 MG/DL (30.0-125.0) L Urine Microalbumin/Creatinine Ratio Pending White Blood Count 8.6 K/UL (4.8-10.8) Red Blood Count 4.86 M/UL (4.70-6.10) Hemoglobin 15.9 G/DL (14.2-18.0) Hematocrit 45.3 % (42.0-52.0) Mean Corpuscular Volume 93 FL (80-99) Mean Corpuscular Hemoglobin 32.7 PG (27.0-31.0) H Mean Corpuscular Hemoglobin Concent 35.1 G/DL (32.0-36.0) Red Cell Distribution Width 11.4 % (11.6-14.8) L Platelet Count 242 K/UL (150-450) Mean Platelet Volume 5.4 FL (6.5-10.1) L Neutrophils (%) (Auto) 59.5 % (45.0-75.0) Lymphocytes (%) (Auto) 29.2 % (20.0-45.0) Monocytes (%) (Auto) 10.6 % (1.0-10.0) H Eosinophils (%) (Auto) 0.1 % (0.0-3.0) Basophils (%) (Auto) 0.7 % (0.0-2.0) Sodium Level 129 MMOL/L (136-145) L Potassium Level 4.4 MMOL/L (3.5-5.1) Chloride Level 94 MMOL/L (98-107) L Carbon Dioxide Level 25 MMOL/L (21-32) Anion Gap 10 mmol/L (5-15) Blood Urea Nitrogen 8 mg/dL (7-18) Creatinine 0.8 MG/DL (0.55-1.30) Estimat Glomerular Filtration Rate > 60 mL/min (>60) Glucose Level 122 MG/DL (74-106) H Calcium Level 8.7 MG/DL (8.5-10.1) JEMIMA GUEVARA Nov 25, 2017 17:54
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
[2017-11-26] VITALS: BP 135/68
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
[2017-11-26 04:00] VITALS: BP 134/79
[2017-11-26 06:35] LABS: BASOPHILS % (AUTO) 1.1 % (0.0-2.0); EOSINOPHILS % (AUTO) 0.1 % (0.0-3.0); HEMATOCRIT 44.7 % (42.0-52.0); HEMOGLOBIN 15.3 G/DL (14.2-18.0); LYMPHOCYTES % (AUTO) 22.5 % (20.0-45.0); MEAN CORPUSCULAR VOLUME 94 FL (80-99); MONOCYTES % (AUTO) 10.9 % (1.0-10.0); NEUTROPHILS % (AUTO) 65.5 % (45.0-75.0); PLATELET COUNT 249 K/UL (150-450); RED BLOOD COUNT 4.76 M/UL (4.70-6.10); RED CELL DISTRIBUTION WIDTH 11.6 % (11.6-14.8); WHITE BLOOD COUNT 8.4 K/UL (4.8-10.8)
[2017-11-26 06:58] LABS: ANION GAP 8 mmol/L (5-15); BLOOD UREA NITROGEN 11 mg/dL (7-18); CALCIUM 8.7 MG/DL (8.5-10.1); CARBON DIOXIDE 27 MMOL/L (21-32); CHLORIDE 97 MMOL/L (98-107); CREATININE 0.9 MG/DL (0.55-1.30); POTASSIUM 4.1 MMOL/L (3.5-5.1); SODIUM 132 MMOL/L (136-145)
[2017-11-26 08:00] VITALS: BP 146/85
[2017-11-26] MEDS: Metoprolol Tartrate 50mg tab ORAL SCH (08:39)
[2017-11-26] MEDS: Depakote ER 500mg tab ORAL SCH (08:39)
--- NOTE | 2017-11-26 11:36 | Diagnostic Imaging Report ---
APPROVED REPORT CPT Code: 74301 Present Symptoms Comments: R/O DVT BILATERAL: Imaging reveals a patent deep venous system bilaterally. There is no evidence of thrombus within the femoral, popliteal or tibial segments. The greater saphenous veins are also within normal limits. Doppler indicates normal spontaneous flow within these segments.
[2017-11-26 12:00] VITALS: BP 133/93
--- NOTE | 2017-11-26 12:15 | Nephrology Progress Note ---
Assessment/Plan Assessment 1. isovolemic hyponatremia, most likely due to antipsychotic medication. improving 2. Increased agitation and behavioral change. 3. History of colostomy. 4. History of colon cancer. Plan free water restriction monitoring renal function replace electrolyte as need avoid NSAID ( cause hyponatremia ) may need to start demeclocycline if na goes lower fallow up with urine study Subjective Constitutional: Reports: no symptoms HEENT: Reports: no symptoms Genitourinary: Reports: no symptoms Neurologic/Psychiatric: Reports: no symptoms Subjective awake no acute events overnight Objective Objective Last 24 Hour Vital Signs Date Time Temp Pulse Resp B/P (MAP) Pulse Ox O2 Delivery O2 Flow Rate FiO2 11/26/17 12:00 97.8 79 19 133/93 98 11/26/17 08:39 90 146/85 11/26/17 08:00 97.5 90 20 146/85 97 11/26/17 04:00 97.3 88 20 134/79 100 Room Air 11/26/17 00:00 98.4 80 20 135/68 93 Room Air Intake and Output 11/25/17 11/26/17 19:00 07:00 Intake Total 1080 ml 120 ml Output Total 250 ml 400 ml Balance 830 ml -280 ml Intake Oral 1080 ml 120 ml Stool Total 250 ml 400 ml # Voids 5 # Bowel Movements 1 1 Laboratory Tests 11/26/17 05:35: White Blood Count 8.4, Red Blood Count 4.76, Hemoglobin 15.3, Hematocrit 44.7, Mean Corpuscular Volume 94, Mean Corpuscular Hemoglobin 32.2H, Mean Corpuscular Hemoglobin Concent 34.3, Red Cell Distribution Width 11.6, Platelet Count 249, Mean Platelet Volume 5.3L, Neutrophils (%) (Auto) 65.5, Lymphocytes (%) (Auto) 22.5, Monocytes (%) (Auto) 10.9H, Eosinophils (%) (Auto) 0.1, Basophils (%) ( Auto) 1.1, Sodium Level 132L, Potassium Level 4.1, Chloride Level 97L, Carbon Dioxide Level 27, Anion Gap 8, Blood Urea Nitrogen 11, Creatinine 0.9, Estimat Glomerular Filtration Rate > 60, Glucose Level 126H, Calcium Level 8.7 Height (Feet): 5 Height (Inches): 8.00 Weight (Pounds): 171 Objective HEAD AND NECK: No JVP. No LAD. No thyromegaly. Extraocular movement intact. Pupils are reactive to light and accommodation. LUNGS: Clear to auscultation. CARDIAC: Regular rate and rhythm. S1 and S2. No murmur. No rub. ABDOMEN: Soft, nontender, nondistended. EXTREMITIES: No edema. No clubbing. No cyanosis. RANDA HERNANDEZ Nov 26, 2017 12:15
--- NOTE | 2017-11-26 15:08 | Pulmonology Progress Note ---
Assessment/Plan Problems: (1) Delirium (2) Colostomy in place (3) Hypertension (4) HTN (hypertension) Assessment/Plan improving symptomatic treatment psych f/u monitor bp colostomy care improving dc planning Subjective ROS Limited/Unobtainable: No Allergies: Coded Allergies: No Known Allergies (Unverified , 10/04/17) Objective Last 24 Hour Vital Signs Date Time Temp Pulse Resp B/P (MAP) Pulse Ox O2 Delivery O2 Flow Rate FiO2 11/26/17 12:00 97.8 79 19 133/93 98 11/26/17 08:39 90 146/85 11/26/17 08:00 97.5 90 20 146/85 97 11/26/17 04:00 97.3 88 20 134/79 100 Room Air 11/26/17 00:00 98.4 80 20 135/68 93 Room Air Intake and Output 11/25/17 11/26/17 19:00 07:00 Intake Total 1080 ml 120 ml Output Total 250 ml 400 ml Balance 830 ml -280 ml Intake Oral 1080 ml 120 ml Stool Total 250 ml 400 ml # Voids 5 # Bowel Movements 1 1 General Appearance: WD/WN HEENT: normocephalic Respiratory/Chest: chest wall non-tender, lungs clear Cardiovascular: normal peripheral pulses, normal rate Abdomen: normal bowel sounds, soft, non tender Extremities: no cyanosis, no clubbing Neurologic/Psychiatric: abnormal gait Lymphatic: no neck adenopathy Microbiology Date/Time Source Procedure Growth Status 11/23/17 19:30 Nasal Nares MRSA Culture - Final NO METHICILLIN RESISTANT STAPH AUREUS... Complete 11/23/17 19:30 Rectum VRE Culture - Final NO VANCOMYCIN RESISTANT ENTEROCOCCUS ... Complete Laboratory Tests 11/26/17 05:35: White Blood Count 8.4, Red Blood Count 4.76, Hemoglobin 15.3, Hematocrit 44.7, Mean Corpuscular Volume 94, Mean Corpuscular Hemoglobin 32.2H, Mean Corpuscular Hemoglobin Concent 34.3, Red Cell Distribution Width 11.6, Platelet Count 249, Mean Platelet Volume 5.3L, Neutrophils (%) (Auto) 65.5, Lymphocytes (%) (Auto) 22.5, Monocytes (%) (Auto) 10.9H, Eosinophils (%) (Auto) 0.1, Basophils (%) ( Auto) 1.1, Sodium Level 132L, Potassium Level 4.1, Chloride Level 97L, Carbon Dioxide Level 27, Anion Gap 8, Blood Urea Nitrogen 11, Creatinine 0.9, Estimat Glomerular Filtration Rate > 60, Glucose Level 126H, Calcium Level 8.7 Current Medications Medications (Trade) Dose Ordered Sig/Lyssa Route PRN Reason Start Time Stop Time Status Last Admin Dose Admin Acetaminophen (Tylenol) 650 mg Q4H PRN ORAL fever (t>100.5F) 11/23/17 17:30 12/23/17 17:29 Al Hydroxide/Mg Hydroxide (Mylanta II) 30 ml Q6H PRN ORAL dyspepsia 11/23/17 17:30 12/23/17 17:29 Clonazepam (KlonoPIN) 1 mg BID ORAL 11/23/17 21:00 11/30/17 20:59 11/26/17 08:39 Dextrose (Dextrose 50%) STAT PRN IV Hypoglycemia 11/23/17 17:30 12/23/17 17:29 Divalproex Sodium (Depakote ER) 1,000 mg Q12HR ORAL 11/23/17 21:00 12/23/17 20:59 11/26/17 08:39 Haloperidol (Haldol) 5 mg BID ORAL 11/23/17 21:00 12/23/17 20:59 11/26/17 08:39 Lorazepam (Ativan 2mg/ml 1ml) 0.5 mg Q4H PRN IV For Anxiety 11/23/17 17:30 11/30/17 17:29 Metoprolol Tartrate (Lopressor) 50 mg EVERY 12 HOURS ORAL 11/23/17 21:00 12/23/17 20:59 11/26/17 08:39 Morphine Sulfate (Morphine Sulfate) 1 mg Q4H PRN IVP Severe Pain (Pain Scale 7-10) 11/23/17 17:30 11/30/17 17:29 11/25/17 14:11 Ondansetron HCl (Zofran) 4 mg Q6H PRN IVP Nausea & Vomiting 11/23/17 17:30 12/23/17 17:29 Polyethylene Glycol (Miralax) 17 gm HSPRN PRN ORAL Constipation 11/23/17 17:30 12/23/17 17:29 11/24/17 09:28 Risperidone (RisperDAL) 3 mg Q12HR ORAL 11/23/17 21:00 12/23/17 20:59 11/26/17 08:39 Tramadol HCl (Ultram) 50 mg Q6H PRN ORAL Moderate Pain (Pain Scale 4-6) 11/23/17 17:30 11/30/17 17:29 11/23/17 20:15 Zolpidem Tartrate (Ambien) 5 mg HSPRN PRN ORAL Insomnia 11/23/17 17:30 11/30/17 17:29 ETHEL SOTO Nov 26, 2017 15:08
[2017-11-26 16:00] VITALS: BP 126/72
--- NOTE | 2017-11-26 16:33 | General Progress Note ---
Assessment/Plan Problem List: (1) Weakness ICD Codes: R53.1 - Weakness SNOMED: 85509974 (2) Behavioral disorder SNOMED: 363880674 (3) Hypertension ICD Codes: I10 - Essential (primary) hypertension SNOMED: 04292843 (4) Colostomy in place ICD Codes: Z93.3 - Colostomy status SNOMED: 057880620, 775772887 (5) Delirium ICD Codes: R41.0 - Disorientation, unspecified SNOMED: 4945682 (6) HTN (hypertension) ICD Codes: I10 - Essential (primary) hypertension SNOMED: 22564089 Status: unchanged Assessment/Plan ot pt diet cbc bmp am dc plan to snf vs psyc Subjective Constitutional: Reports: weakness Allergies: Coded Allergies: No Known Allergies (Unverified , 10/04/17) All Systems: reviewed and negative except above Subjective sl confused in bed Objective Last 24 Hour Vital Signs Date Time Temp Pulse Resp B/P (MAP) Pulse Ox O2 Delivery O2 Flow Rate FiO2 11/26/17 16:00 97.6 77 19 126/72 96 11/26/17 12:00 97.8 79 19 133/93 98 11/26/17 08:39 90 146/85 11/26/17 08:00 97.5 90 20 146/85 97 11/26/17 04:00 97.3 88 20 134/79 100 Room Air 11/26/17 00:00 98.4 80 20 135/68 93 Room Air Intake and Output 11/25/17 11/26/17 19:00 07:00 Intake Total 1080 ml 120 ml Output Total 250 ml 400 ml Balance 830 ml -280 ml Intake Oral 1080 ml 120 ml Stool Total 250 ml 400 ml # Voids 5 # Bowel Movements 1 1 Laboratory Tests 11/26/17 05:35: White Blood Count 8.4, Red Blood Count 4.76, Hemoglobin 15.3, Hematocrit 44.7, Mean Corpuscular Volume 94, Mean Corpuscular Hemoglobin 32.2H, Mean Corpuscular Hemoglobin Concent 34.3, Red Cell Distribution Width 11.6, Platelet Count 249, Mean Platelet Volume 5.3L, Neutrophils (%) (Auto) 65.5, Lymphocytes (%) (Auto) 22.5, Monocytes (%) (Auto) 10.9H, Eosinophils (%) (Auto) 0.1, Basophils (%) ( Auto) 1.1, Sodium Level 132L, Potassium Level 4.1, Chloride Level 97L, Carbon Dioxide Level 27, Anion Gap 8, Blood Urea Nitrogen 11, Creatinine 0.9, Estimat Glomerular Filtration Rate > 60, Glucose Level 126H, Calcium Level 8.7 Height (Feet): 5 Height (Inches): 8.00 Weight (Pounds): 171 General Appearance: confused EENT: normal ENT inspection Neck: normal alignment Cardiovascular: normal peripheral pulses, normal rate, regular rhythm Respiratory/Chest: chest wall non-tender, lungs clear, normal breath sounds Abdomen: normal bowel sounds, non tender, soft Extremities: normal inspection Edema: no edema noted Arm (L), no edema noted Arm (R), no edema noted Leg (L), no edema noted Leg (R), no edema noted Pedal (L), no edema noted Pedal (R), no edema noted Generalized Neurologic: motor weakness Skin: normal pigmentation, warm/dry ANIBAL COLBY Nov 26, 2017 16:33
--- NOTE | 2017-11-26 21:51 | Cardiology Progress Note ---
Assessment/Plan Assessment/Plan 1. non-cardiac chest pain. No cardiac intervention is required at this time. May use NSAIDs if recurrent. 2. History of hypertension, continue with metoprolol. 3. History of psychiatric disorder. Subjective Subjective Sinus rhythm at 77. Denies chest pain or SOB. Objective Last 24 Hour Vital Signs Date Time Temp Pulse Resp B/P (MAP) Pulse Ox O2 Delivery O2 Flow Rate FiO2 11/26/17 16:00 97.6 77 19 126/72 96 11/26/17 12:00 97.8 79 19 133/93 98 11/26/17 08:39 90 146/85 11/26/17 08:00 97.5 90 20 146/85 97 11/26/17 04:00 97.3 88 20 134/79 100 Room Air 11/26/17 00:00 98.4 80 20 135/68 93 Room Air Intake and Output 11/25/17 11/26/17 19:00 07:00 Intake Total 1080 ml 120 ml Output Total 250 ml 400 ml Balance 830 ml -280 ml Intake Oral 1080 ml 120 ml Stool Total 250 ml 400 ml # Voids 5 # Bowel Movements 1 1 Laboratory Tests Test 11/26/17 05:35 White Blood Count 8.4 K/UL (4.8-10.8) Red Blood Count 4.76 M/UL (4.70-6.10) Hemoglobin 15.3 G/DL (14.2-18.0) Hematocrit 44.7 % (42.0-52.0) Mean Corpuscular Volume 94 FL (80-99) Mean Corpuscular Hemoglobin 32.2 PG (27.0-31.0) H Mean Corpuscular Hemoglobin Concent 34.3 G/DL (32.0-36.0) Red Cell Distribution Width 11.6 % (11.6-14.8) Platelet Count 249 K/UL (150-450) Mean Platelet Volume 5.3 FL (6.5-10.1) L Neutrophils (%) (Auto) 65.5 % (45.0-75.0) Lymphocytes (%) (Auto) 22.5 % (20.0-45.0) Monocytes (%) (Auto) 10.9 % (1.0-10.0) H Eosinophils (%) (Auto) 0.1 % (0.0-3.0) Basophils (%) (Auto) 1.1 % (0.0-2.0) Sodium Level 132 MMOL/L (136-145) L Potassium Level 4.1 MMOL/L (3.5-5.1) Chloride Level 97 MMOL/L (98-107) L Carbon Dioxide Level 27 MMOL/L (21-32) Anion Gap 8 mmol/L (5-15) Blood Urea Nitrogen 11 mg/dL (7-18) Creatinine 0.9 MG/DL (0.55-1.30) Estimat Glomerular Filtration Rate > 60 mL/min (>60) Glucose Level 126 MG/DL (74-106) H Calcium Level 8.7 MG/DL (8.5-10.1) Objective HEENT: Atraumatic and normocephalic. Anicteric. Pupils are equal, round, and reactive to light and accommodation. Extraocular muscles intact. NECK: JVP less than 5 cm. No carotid bruit. Carotid upstrokes 2+ bilaterally. CARDIOVASCULAR: Normal S1, S2. Regular rate and rhythm. No murmurs, gallops, or rubs. PMI is at fourth intercostal space at the midclavicular line. LUNGS: Clear to auscultation bilaterally. ABDOMEN: Soft, nontender, and nondistended. No hepatosplenomegaly. Positive bowel sounds. EXTREMITIES: No evidence of edema, clubbing, or cyanosis. JEMIMA GUEVARA Nov 26, 2017 21:51
--- NOTE | 2017-11-27 02:30 | Progress Note ---
DATE: 11/25/2017 NOTE: POOR AUDIO TREATING ATTENDING PHYSICIAN: Marty Hawthorne D.O. SUBJECTIVE: The patient is a 56-year-old male patient with history of schizophrenia. The patient has . MENTAL STATUS EXAMINATION: . The patient is alert and oriented x2, person and place. . Poor insight, judgment, and impulse control. PLAN: This clinician assessed this patient. Assessed the patient's mental status. Encouraging the patient to participate in treatment milieu, reality orientation, and coping skills. Continue with medication management and behavioral management. This clinician has reviewed the patient's chart and discussed the treatment with treatment team. Nava Longoria PsyD. DR: SHAVON JOB#: [id number] CC:
--- NOTE | 2017-11-29 10:45 | Discharge Summary ---
Discharge Summary Hospital Course Date of Admission Nov 23, 2017 at 15:55 Date of Discharge Nov 26, 2017 at 18:15 Admitting Diagnosis weakness/behavioral HPI Hero Tello is a 56 year old male who was admitted on Nov 23, 2017 at 15:55 for Weakness, Behavioral Hospital Course dc summary #[id number] Discharge Medications Continued Medications: Acetaminophen* (Acetaminophen 325MG Tablet*) 325 Mg Tablet 650 MG ORAL Q4H PRN for Fever/Headache/Mild Pain, TAB Diphenhydramine Hcl* (Benadryl*) 25 Mg Capsule 50 MG ORAL QHS PRN for Insomnia, CAP Divalproex Sodium* (Depakote*) 250 Mg Tablet.dr 1000 MG PO Q12HR, TAB Folic Acid* (Folic Acid*) 1 Mg Tablet 1 MG ORAL DAILY, TAB Haloperidol Decanoate (Haloperidol Decanoate) 100 Mg/1 Ml Vial 100 MG IM [id number], VIAL Haloperidol* (Haldol*) 1 Mg Tablet 5 MG ORAL BID, #20 TAB 0 Refills Metoprolol Tartrate* (Metoprolol Tartrate*) 50 Mg Tablet 50 MG ORAL EVERY 12 HOURS, TAB 0 Refills Risperidone* (Risperdal*) 1 Mg Tablet 3 MG PO BID, TAB Sennosides (Senna) 8.6 Mg Tablet 8.6 MG PO QHS PRN for Constipation, TAB Discharge Discharge Disposition Patient was discharged to Psychiatric Facility ([facility]) Discharge Diagnoses: Discharge Instructions Discharge Instructions Special Instructions I have been assigned to complete a D/C Summary on this account. I was not involved in the patient management Ema Pop NP (Vanchtein) Nov 29, 2017 10:45
--- NOTE | 2017-11-30 03:30 | Discharge Summary 2 SIG ---
DATE OF ADMISSION: 11/23/2017 DATE OF DISCHARGE: 11/26/2017 REASON FOR ADMISSION: 56-year-old male with history of hypertension, extensive psychiatric history, colon cancer with colectomy and colostomy status, was sent from the [facility] facility for evaluation due to the increased agitation and combative behavior. Upon evaluation in the emergency room, vital signs were stable. The patient was agitated. Mild leukocytosis- 11.2, stable hemoglobin and hematocrit. Sodium -129, rest of the electrolytes were stable. Serum alcohol level, Tylenol level, and salicylates were all negative. Urine toxicology screen was negative. The patient was admitted with diagnosis of behavioral disorder, delirium, hypertension, and colostomy status. HOSPITAL COURSE: The patient was admitted. Neurology consult was requested. Sitter was at the bedside at all times. Neurologist seen and evaluated the patient. CT of the head revealed no acute intracranial pathology. TSH, B12, and ESR were all within normal limits. Depakote level was in subtherapeutic range. Neurologist diagnosed the patient with chronic psychiatric disorder exacerbation and recommended psychiatric evaluation. The patient was also started on aspirin. Venous duplex bilateral lower extremities was negative. Hospitalist advised to rule out sepsis as etiology of delirium. Chest x-ray revealed no acute cardiopulmonary pathology. Initial mild leukocytosis resolved. Urinalysis negative for evidence of UTI, no clinical evidence of infection, no fever. Environmental Services Director seen and evaluated the patient for management of hypertension. At the bedside, the patient complained to grease remover of the chest pain. According to grease remover, chest pain was noncardiac, and EKG showed no acute ischemic changes. Per grease remover, no need for cardiac workup. Blood pressure was managed with beta-beata and remained stable. Lipid panel was within normal limits. Mineral [employer] Insulation Supervisor followed the patient for initial hyponatremia. According to news correspondent, it was isovolemic hyponatremia, most likely related to antipsychotic medications. Free water restriction was enforced. Electrolytes were corrected as needed. Min[employer] Insulation Supervisor recommended to avoid nonsteroidal anti-inflammatory medication as they can also cause hyponatremia. Urine studies were done. Sodium up to 132 prior to discharge. Psychologist seen and evaluated the patient and was trying to involve the patient in the treatment milieu, reality orientation, and coping skills. Transfer was arranged to psychiatric facility where psychiatrist will see and follow up the patient for further management of psychiatric disorder exacerbation. The patient was stable for discharge to Psychiatric Facility. FINAL DIAGNOSES: 1. Delirium, resolved. 2. Chronic psychiatric disorder exacerbation. 3. History of colon cancer with colectomy and colostomy status. 4. Hypertension. 5. Isovolemic hyponatremia. 6. Noncardiac chest pain. DISCHARGE MEDICATIONS: See medication reconciliation list. DISCHARGE INSTRUCTIONS: The patient was discharged to psychiatric nursing facility for further management. Follow up with psychiatrist and attending at the facility. Marty Hawthorne D.O. I have been assigned to dictate discharge summary on this account and I was not involved in the patient's management. Ema MasMohansic State HospitalTelma N.PTasha DR: NIMISHA JOB#: [id number] CC: HILARY
== END 2017-11-26 18:15 | DRG 641 ==
LOC: EDUNIT# 14:58 → EDBD 14:58 → EMR 15:35 → 4E 15:55 → EDBEDREQ 15:59
DX: E87.1 Hypo-osmolality and hyponatremia (principal); Z43.1 Encounter for attention to gastrostomy; I10 Essential (primary) hypertension; T43.505A Adverse effect of unspecified antipsychotics and neuroleptics, initial encounter; R41.0 Disorientation, unspecified; Z85.038 Personal history of other malignant neoplasm of large intestine; R53.1 Weakness; T43.95XA Adverse effect of unspecified psychotropic drug, initial encounter; R07.89 Other chest pain; E78.5 Hyperlipidemia, unspecified; F25.0 Schizoaffective disorder, bipolar type
CPT/HCPCS: 36415; 70450; 80048; 80053; 80061; 80164; 80307; 80329; 82043; 82044; 82570; 82607; 83935; 84300; 84443; 85025; 85651; 87081; 89050; 93970; 97803; 99285